=== PATIENT | female | born 1960 | race Two or more races ===

== ENCOUNTER 2025-03-05 15:14 | Inpatient (IN) | payer MEDICAID, OTHER ==
[~2025-03-05] VITALS: Ht 147.3 cm; Wt 52.8 kg
[2025-03-05 15:47] LABS: Hematocrit 39.1 % (36.0-46.0); Hemoglobin 13.7 g/dL (12.2-16.2); Mean Corpuscular Hemoglobin 31.8 pg (28.0-32.0); Mean Corpuscular Volume 90.5 fL (80.0-100.0); Nucleated Red Blood Cells % 0.2 %
[2025-03-05 15:53] LABS: Chloride 102 mmol/L (98-107); Sodium 137 mmol/L (136-145)
[2025-03-05 15:54] LABS: Anion Gap 11 (5-15); Carbon Dioxide 24 mmol/L (20-31)
[2025-03-05 15:55] LABS: Calcium 9.8 mg/dL (8.7-10.4); Potassium 3.4 mmol/L (3.5-5.1)
[2025-03-05 15:59] LABS: Glucose 101 mg/dL (74-106)
[2025-03-05 16:00] LABS: BUN/Creatinine Ratio 16.7 (10.0-20.0); Blood Urea Nitrogen 12 mg/dL (9-23)
--- NOTE | 2025-03-05 16:01 | ED.PDOC ---
HPI Comments This is a 64 year old female presenting to the ED with chief complaint of chest pain. Patient reports that she has been experiencing left sided chest pain with associated radiation to her left shoulder and SOB since yesterday. Patient relays that she has history of a CABG. Patient denies any N/V, abdominal pain, headache, dizziness, numbness, or weakness. Chief Complaint: Chest Pain Time Seen by MD: 15:59 Reviewed Notes: Nurses Notes, Medications, Allergies Allergies: Coded Allergies: NO KNOWN ALLERGIES (Unverified , 03/05/25) Information Source: Patient Mode of Arrival: Ambulatory Severity: Moderate Timing: Days Duration: Since onset Prehospital treatment: None Location: Chest (L) Radiation: Shoulder (L) Quality: Sharp Onset: At Rest PE Risk Factors: None History of: Aortic Disease Associated Signs and Symptoms: SOB Past Medical History PAST MEDICAL HISTORY: CAD, Denies Surgical History: CABG BRIGHT CUTTER History: No Pertinent BRIGHT CUTTER History Family History Family History: Reviewed,noncontributory to illness Social History Smoker: Non-Smoker Alcohol: Denies ETOH Use Drugs: Denies Drug Use Lives In: Home Constitutional: denies: chills, diaphoresis, fatigue, fever, malaise, sweats, weakness, others EENTM: denies: blurred vision, double vision, ear bleeding, ear discharge, ear drainage, ear pain, ear ringing, eye pain, eye redness, hearing loss, mouth pain, mouth swelling, nasal discharge, nose bleeding, nose congestion, nose pain, photophobia, tearing, throat pain, throat swelling, voice changes, others Respiratory: reports: shortness of breath; denies: cough, hemoptysis, or thopnea, SOB at rest, SOB with excertion, stridor, wheezing, others Cardiovascular: reports: chest pain; denies: dizzy spells, diaphoresis, Dyspnea on exertion, edema, irregular heart beat, left arm pain, lightheadedness, palpitations, PND, syncope, others Gastrointestinal: denies: abdomen distended, abdominal pain, blood streaked bowels, constipated, diarrhea, dysphagia, difficulty swallowing, hematemesis, melena, nausea, poor appetite, poor fluid intake, rectal bleeding, rectal pain, vomiting, others Genitourinary: denies: abnormal vagina bleeding, burning, dyspareunia, dysuria, flank pain, frequency, hematuria, incontinence, pain, , vagina discharge, urgency, others Neurological: denies: dizziness, fainting, headache, left sided numbness, left sided weakness, numbness, paresthesia, pre-existing deficit, right sided numbness, right sided weakness, seizure, speech problems, tingling, tremors, weakness, others Musculoskeletal: reports: others (Lt shoulder pain); denies: back pain, gout, joint pain, joint swelling, muscle pain, muscle stiffness, neck pain Integumetry: denies: bruises, change in color, change in hair/nails, dryness, laceration, lesions, lumps, rash, wounds, others Allergic/Immunocompromised: denies: Difficulty Healing, Frequent Infections, Hives, Itching, others Hematologic/Lymphatic: denies: anemia, blood clots, easy bleeding, easy bruising, swollen glands, others Endocrine: denies: excessive hunger, excessive sweating, excessive thirst, excessive urination, flushing, intolerance to cold, intolerance to heat, unexplained weight gain, unexplained weight loss, others Psychiatric: denies: anxiety, bipolar disorder, depression, hopeless, panic disorder, schizophrenia, sleepless, suicidal, others All Other Systems: Reviewed and Negative Physical Exam General Appearance: No Apparent Distress, Normal, Other (Anxious appearing) HEENT: Normal ENT Inspection, Pharynx Normal, TMs Normal Neck: Full Range of Motion, Non-Tender, Normal, Normal Inspection Respiratory: Chest Non-Tender, Lungs Clear, No Accessory Muscle Use, No Respiratory Distress, Normal Breath Sounds Cardiovascular: No Edema, No JVD, No Murmur, No Gallop, Normal Peripheral Pulses, Regular Rate/Rhythm Breast Exam: Deferred Gastrointestinal: No Organomegaly, Non Tender, No Pulsatile Mass, Normal Bowel Sounds, Soft Genitalia: Deferred Pelvic: Deferred Rectal: Deferred Extremities: No calf tenderness, Normal capillary refill, Normal inspection, Normal range of motion, Non-tender, No pedal edema Musculoskeletal : Apperance: Normal Neurologic: Alert, children's librarian II-XII nml as Tested, No Motor Deficits, Normal Affect, Normal Mood, No Sensory Deficits Cerebellar Function: Normal Reflexes: Normal Skin: Dry, Normal Color, Warm Lymphatic: No Adenopathy Was a procedure done? Was a procedure done?: No CP Differential Dx Differential Diagnosis: [place], PAC's Differential Diagnosis: CHF, HTN Essential, HTN Accelerated Differential Diagnosis: Aortic dissection, Cholelithiasis, Gastritis, Myocardial Infarction, Pericarditis X-Ray, Labs, Meds, VS Vital Signs Date Time Temp Pulse Resp B/P (MAP) Pulse Ox O2 Delivery O2 Flow Rate FiO2 03/05/25 16:27 98 Room Air* 0 21 03/05/25 16:23 81 18 98 Room Air* 0 21 03/05/25 16:12 81 03/05/25 16:00 97.6 82 18 140/73 (95) 98 97.6 03/05/25 15:28 85 03/05/25 15:24 82 03/05/25 15:18 96.2 92 18 135/75 99 96.2 Lab Test 03/05/25 16:22 03/05/25 15:22 Range/Units Troponin I High Sensitivity 31 31 </=34 ng/L White Blood Count 10.5 4.4-10.8 10^3/uL Red Blood Count 4.32 4.0-5.20 10^6/uL Hemoglobin 13.7 12.2-16.2 g/dL Hematocrit 39.1 36.0-46.0 % Mean Corpuscular Volume 90.5 80.0-100.0 fL Mean Corpuscular Hemoglobin 31.8 28.0-32.0 pg Mean Corpuscular Hemoglobin Concent 35.1 32.0-36.0 g/dL Red Cell Distribution Width 16.7 H 11.8-14.3 % Platelet Count 285 140-450 10^3/uL Mean Platelet Volume 8.3 6.9-10.8 fL Neutrophils (%) (Auto) 71.0 37.0-80.0 % Lymphocytes (%) (Auto) 18.7 10.0-50.0 % Monocytes (%) (Auto) 9.6 0.0-12.0 % Eosinophils (%) (Auto) 0.2 0.0-7.0 % Basophils (%) (Auto) 0.5 0.0-2.0 % Neutrophils # (Auto) 7.4 1.6-8.6 10 ^3/uL Lymphocytes # (Auto) 2.0 0.4-5.4 10 ^3/uL Monocytes # (Auto) 1.0 0-1.3 10 ^3/uL Eosinophils # (Auto) 0 0-0.8 10 ^3/uL Basophils # (Auto) 0 0-0.2 10 ^3/uL Nucleated Red Blood Cells 0.2 % Sodium Level 137 136-145 mmol/L Potassium Level 3.4 L 3.5-5.1 mmol/L Chloride Level 102 98-107 mmol/L Carbon Dioxide Level 24 20-31 mmol/L Anion Gap 11 5-15 Blood Urea Nitrogen 12 9-23 mg/dL Creatinine 0.72 0.550-1.02 mg/dL Glomerular Filtration Rate Calc 94 >90 mL/min BUN/Creatinine Ratio 16.7 10.0-20.0 Serum Glucose 101 74-106 mg/dL Calcium Level 9.8 8.7-10.4 mg/dL Time of 1ST Reevaluation: 16:58 Reevaluation 1ST: Unchanged Patient Education/Counseling: Diagnosis, Treatment Family Education/Counseling: No Family Present SEPSIS Sepsis Screen Date sepsis recognized/suspect: Mar 05, 2025 Time Sepsis recognized/suspect: 152 Recent Procedure: No On Antibiotic Therapy: No Respiratory Rate >20: No Heart Rate >90: Yes Temp<36 C (96.8 F) or >38.3 C: No SBP <90 or MAP <65 mmHG: No New Acute Mental Status Change: No Is the patient on CPAP, BIPAP,: No Physician Orders Electrocardigram (03/05/25 15:17) Electrocardigram (03/05/25 16:17) Electrocardigram (03/05/25 18:17) Troponin-I Hs (03/05/25 18:17) Chest Portable (03/05/25 15:35) Vital Signs Date Time Temp Pulse Resp B/P (MAP) Pulse Ox O2 Delivery O2 Flow Rate FiO2 03/05/25 16:27 98 Room Air* 0 21 03/05/25 16:23 81 18 98 Room Air* 0 21 03/05/25 16:12 81 03/05/25 16:00 97.6 82 18 140/73 (95) 98 97.6 03/05/25 15:28 85 03/05/25 15:24 82 03/05/25 15:18 96.2 92 18 135/75 99 96.2 Laboratory Tests Test 03/05/25 15:22 White Blood Count 10.5 10^3/uL (4.4-10.8) Departure 1 Departure Time of Disposition: 17:57 (Patient presented with chest pain that was concerning for possible STEMI, ACS, PE, Pneumonia, Muscle Strain, COPD, Dissection. Data: 1. I ordered and reviewed the result of at least 3 labs including a CBC, BMP, and Troponin. 2. I independently interpreted the following tests: EKG which shows a sinus arrhythmia and Chest X-ray which shows benign chest.Risk:This patient has a high risk of morbidity due to further diagnostic testing or treatment and may suffer from an acute cardiac or respiratory disorder. Workup reveals acute chest pain and patient should be admitted for further workup and possible expert consultation. ) Impression: Primary Impression: Acute chest pain Additional Impression: Shortness of breath Disposition: ADMITTED INPATIENT Admit to: Tele Condition: Guarded Critical Care Note Critical Care Time?: Yes Critical care comment: Acute chest pain Authorized and Performed by: Shaylee Humphreys MD Total critical care time: Approximately 39 minutes Due to a high probability of clinically significant, life threatening deterioration, the patient required my highest level of preparedness to intervene emergently and I personally spent this critical care time directly and personally managing the patient. This critical care time included obtaining a history; examining the patient; pulse oximetry; ordering and review of studies; arranging urgent treatment with development of a management plan; evaluation of patient's response to treatment; frequent reassessment; and, discussions with other providers. This critical care time was performed to assess and manage the high probability of imminent, life-threatening deterioration that could result in multi-organ failure. It was exclusive of separately billable procedures and treating other patients and teaching time. Please see my other sections and the rest of the note for further information on patient assessment and treatment. Stability Stability form required: No Heart Score Heart Score: Heart Score Response (Comments) Value History Highly Suspicious 2 EKG Normal 0 Age 45-64 1 Risk Factors >3 or Hx ASHD 2 Troponin 1-2 x's Normal limit 1 Total 6 I personally scribed for SHAYLEE HUMPHREYS MD ([email or web address]) on 03/05/25 at 16:01. Electronically submitted by Hernan Breaux ([email or web address]). SHAYLEE HUMPHREYS MD Mar 05, 2025 16:01
[2025-03-05 16:23] VITALS: PULSE 81; RESP 18; O2SAT 98
--- NOTE | 2025-03-05 16:38 | DVH ---
CHEST RADIOGRAPH Indication: cp Technique: Single frontal view of the chest was obtained Comparison: None FINDINGS: Lines and Tubes: None Lungs: No focal consolidation. Mild elevation of the left hemidiaphragm with left basilar linear dens ities. Pleura: No effusion. No pneumothorax. Cardiomediastinal contours: Unremarkable Bones: No acute osseous abnormality. Midline sternotomy wires are noted. IMPRESSION: Elevated left hemidiaphragm with left basilar atelectasis.
--- NOTE | 2025-03-05 19:25 | DVHHP2 ---
Admitting Diagnosis: Chest pain History of Present Illness 64 yo female with hx of CABG c/o left sided chest pain that radiates to her left shoulder with associated SOB. While in the emergency department the patient was evaluated by the provider, As per provider: Labs, vital signs, and imagining monitored. Patient will be admitted for further evaluation and treatment. I discussed admission with the patient/family and is in agreement to treatment plan. Allergies: Coded Allergies: NO KNOWN ALLERGIES (Unverified , 03/05/25) Home Meds Reported Medications Quetiapine Fumerate (Seroquel) 50 Mg Tab, 25 MG PO BID, TAB 03/06/25 Furosemide (Furosemide) 20 Mg Tab, 20 MG PO DAILY, TAB 03/06/25 Metoprolol Tartrate (Metoprolol Tartrate) 25 Mg Tab, 12.5 MG PO BID, TAB 03/06/25 Warfarin Sodium (Warfarin Sodium) 3 Mg Tab, 6 MG PO, TAB TAHE 2 TABLET BY MOUTH EVERY MON, WED, TH, FRI, AND SUN. 03/06/25 Atorvastatin Calcium (ATORVASTATIN CALCIUM) 40 Mg Tab, 40 MG PO DAILY, TAB 03/06/25 Duloxetine Hcl (Cymbalta) 60 Mg Cap, 60 MG PO DAILY, CAP 03/06/25 Warfarin Sodium (Warfarin Sodium) 4 Mg Tab, 4 MG PO DAILY, TAB TAKE 1 TABLET BY MOUTH EVERY AND SAT. 03/06/25 Levothyroxine Sodium (Levothyroxine Sodium) 88 Mcg Tab, 88 MCG PO DAILY, TAB 03/06/25 Hctz (Hydrochlorothiazide) 25 Mg Tab, 25 MG PO DAILY, TAB 03/06/25 Current Medications Current Medications Medications (Trade) Dose Ordered Sig/Toño Route PRN Reason Start Time Stop Time Status Last Admin Enoxaparin Sodium (Lovenox) 40 mg DAILY SC 03/06/25 10:00 03/06/25 14:00 DC 03/06/25 11:54 Pantoprazole Sodium (Protonix Tablet) 40 mg DAILY@0700 PO 03/06/25 07:00 03/06/25 06:00 Potassium Chloride 100 ml @ 50 mls/hr Q2H IV 03/06/25 11:45 03/06/25 15:44 DC 03/06/25 17:10 Furosemide (Lasix Tablet) 20 mg DAILY PO 03/07/25 10:00 Hydrochlorothiazide (hydroCHLOROthiazide TABLET) 25 mg DAILY PO 03/07/25 10:00 Levothyroxine Sodium (Synthroid Tablet) 88 mcg DAILY PO 03/07/25 10:00 Metoprolol Tartrate (Lopressor Tablet) 12.5 mg BID PO 03/06/25 22:00 Atorvastatin Calcium (Lipitor) 40 mg HS PO 03/06/25 22:00 Duloxetine HCl (Cymbalta Capsule) 60 mg DAILY PO 03/07/25 10:00 Quetiapine Fumarate (SEROquel TABLET) 25 mg BID PO 03/06/25 22:00 03/06/25 15:10 DC Warfarin Sodium (Coumadin Per Rx Protocol) RX PROTOCOL PER PHARMACY PO 03/06/25 14:00 Quetiapine Fumarate (SEROquel TABLET) 12.5 mg BID PO 03/06/25 22:00 Review of Systems Constitutional: denies chills, denies fever, denies malaise Eyes: denies eye pain, denies vision change ENT: denies ear pain, denies headache, denies nasal congestion, denies painful swallowing, denies voice change Cardiovascular: denies chest pain, denies edema, denies orthopnea, denies palpitations, denies paroxysmal nocturnal dyspnea Respiratory: denies cough, denies shortness of breath Gastrointestinal: denies constipation, denies diarrhea, denies nausea, denies vomiting Genitourinary: denies dysuria, denies frequent urination, denies urethral discharge Musculoskeletal: denies back pain, denies joint pain, denies muscle pain Skin: denies bruising, denies itching, denies rash Neurological: denies focal weakness, denies headache, denies sensory changes Psychiatric: denies anxiety, denies depression Endocrine: denies polydipsia, denies polyuria Hematologic/Lymphatic: denies easy bleeding, denies easy bruising, denies enlarged lymph nodes Allergic/Immunologic: denies allergy, denies hives Vital Signs Vital Signs Date Time Temp Pulse Resp B/P (MAP) Pulse Ox O2 Delivery O2 Flow Rate FiO2 03/06/25 21:00 97.8 86 16 111/65 (80) 96 97.8 03/05/25 20:55 Room Air* 0 21 Physical Exam General Appearance: alert, no distress HEENT: EOMI, PERRLA, normal external inspect of ears, no icterus, no nasal drainage Neck: no carotid bruit, no jugular venous distention (JVD), no lymphadenopathy Chest: normal thorax Respiratory: clear to auscultation, normal air movement Cardiovascular: regular rate and rhythm, no diastolic murmur, no jugular venous distention (JVD), no rub, no systolic murmur Abdominal: soft, no hepatomegaly, no mass, no splenomegaly, no tenderness Genitourinary: grossly normal external Musculoskeletal: no joint tenderness, no swelling Extremities: normal pulses, no calf tenderness, no clubbing, no cyanosis, no edema Skin: no bruising, no jaundice, no rash Neurological: alert, No focal deficit SEPSIS Sepsis Screen Date sepsis recognized/suspect: Mar 05, 2025 Time Sepsis recognized/suspect: 1625 Recent Procedure: No On Antibiotic Therapy: No Respiratory Rate >20: No Heart Rate >90: No Temp<36 C (96.8 F) or >38.3 C: No SBP <90 or MAP <65 mmHG: No New Acute Mental Status Change: No Is the patient on CPAP, BIPAP,: No Physician Orders Electrocardigram (03/05/25 15:17) Electrocardigram (03/05/25 16:17) Electrocardigram (03/05/25 18:17) Chest Portable (03/05/25 15:35) Admit (03/05/25 19:21) Code Status (03/05/25 19:21) Hydrocodone-Acet 5/325mg Tab ([place] 5/32 (03/05/25 19:30) Temazepam (Restoril) (03/05/25 19:30) Ondansetron Hcl (Zofran) (03/05/25 19:30) Docusate Sodium Capsule (Colace Capsule) (03/05/25 19:30) Cardiac Diet-2gna,Lofat,Lochol (03/06/25 Breakfast) Condition: Fair (03/05/25 19:21) Acetaminophen Tablet (Tylenol Tablet) (03/05/25 19:30) Morphine Sulfate Injection (03/05/25 19:30) Sequential Compression Device (03/05/25 ) *Consult Dr. Marcos Garcia (03/05/25 19:21) Nitroglycerin Sublingual (Ntrostat Subli (03/05/25 19:30) Morphine Sulfate Injection (03/05/25 19:30) Stat Ekg For Chest Pain (03/05/25 19:21) Notify Md Of Changes From Base (03/05/25 19:21) Heading Maker For 24 Hours (03/05/25 19:21) Emergency Dysrhythmia Protocol (03/05/25 19:21) Rhythm Strips Once Every Shift (03/05/25 19:21) Oxygen By Nasal Cannula (03/05/25 19:21) Pantoprazole Tablet (Protonix Tablet) (03/06/25 07:00) Echo 2d Mode Cardiac Dop (03/06/25 19:21) Angio Aortic Abdominal (03/06/25 12:12) Furosemide Tablet (Lasix Tablet) (03/07/25 10:00) Hydrochlorothiazide Tablet (Hydrochlorot (03/07/25 10:00) Levothyroxine Tablet (Synthroid Tablet) (03/07/25 10:00) Metoprolol Tartrate Tablet (Lopressor Ta (03/06/25 22:00) Duloxetine Hcl Capsule (Cymbalta Capsule (03/07/25 10:00) Warfarin Per Rx Protocol (Coumadin Per R (03/06/25 14:00) Atorvastatin (Lipitor) (03/06/25 22:00) Quetiapine Fumarate Tablet (Seroquel Tab (03/06/25 22:00) Coumadin Per Pharmacy Protcol (03/06/25 17:00) PTPTT (03/07/25 05:00) Complete Blood Count (03/07/25 05:00) Potassium Effervesent Tab (Klor-Con/Ef) (03/06/25 22:00) Ct Angio Chest Contrast (03/06/25 19:42) Vital Signs Date Time Temp Pulse Resp B/P (MAP) Pulse Ox O2 Delivery O2 Flow Rate FiO2 03/06/25 21:00 97.8 86 16 111/65 (80) 96 97.8 03/06/25 17:22 98.6 83 18 139/65 (89) 96 98.6 03/06/25 13:03 97.6 70 16 129/63 (85) 100 97.6 03/06/25 09:39 98.1 96 18 153/75 (101) 99 98.1 03/06/25 04:00 90 03/06/25 00:00 90 03/05/25 22:00 98.3 83 18 134/84 (101) 98 98.3 03/05/25 20:55 72 16 98 Room Air* 0 21 03/05/25 20:00 98.4 90 16 124/65 (84) 98 98.4 03/05/25 20:00 89 03/05/25 18:15 87 03/05/25 18:00 85 18 152/78 (102) 98 03/05/25 16:27 98 Room Air* 0 21 03/05/25 16:23 81 18 98 Room Air* 0 21 03/05/25 16:12 81 03/05/25 16:00 97.6 82 18 140/73 (95) 98 97.6 03/05/25 15:28 85 03/05/25 15:24 82 03/05/25 15:18 96.2 92 18 135/75 99 96.2 Laboratory Tests Test 03/05/25 15:22 03/06/25 03:56 White Blood Count 10.5 10^3/uL (4.4-10.8) 6.4 10^3/uL (4.4-10.8) # Medications Medications Dose Ordered Sig/Toño Route Start Time Stop Time Status Last Admin Dose Admin Enoxaparin Sodium 40 mg DAILY SC 03/06/25 10:00 03/06/25 14:00 DC 03/06/25 11:54 Potassium Bicarbonate 50 meq ONCE ONCE PO 03/06/25 17:45 03/06/25 17:48 DC 03/06/25 18:07 Potassium Chloride 100 ml @ 50 mls/hr Q2H IV 03/06/25 11:45 03/06/25 15:44 DC 03/06/25 17:10 Warfarin Sodium 4 mg ONCE@17 ONCE PO 03/06/25 17:00 03/06/25 17:01 DC 03/06/25 17:08 Results Labs Test 03/06/25 14:59 03/06/25 03:56 03/05/25 18:23 03/05/25 15:22 Range/Units Prothrombin Time 24.1 H 9.3-11.8 sec Prothrombin Time INR 2.49 H 0.9-1.15 Activated Partial Thromboplast Time 49.7 H 24.5-34.5 SEC White Blood Count 6.4 # 4.4-10.8 10^3/uL Red Blood Count 4.09 4.0-5.20 10^6/uL Hemoglobin 12.9 12.2-16.2 g/dL Hematocrit 37.6 36.0-46.0 % Mean Corpuscular Volume 91.9 80.0-100.0 fL Mean Corpuscular Hemoglobin 31.4 28.0-32.0 pg Mean Corpuscular Hemoglobin Concent 34.2 32.0-36.0 g/dL Red Cell Distribution Width 16.2 H 11.8-14.3 % Platelet Count 242 140-450 10^3/uL Mean Platelet Volume 8.1 6.9-10.8 fL Neutrophils (%) (Auto) 59.2 37.0-80.0 % Lymphocytes (%) (Auto) 29.4 10.0-50.0 % Monocytes (%) (Auto) 10.5 0.0-12.0 % Eosinophils (%) (Auto) 0.6 0.0-7.0 % Basophils (%) (Auto) 0.3 0.0-2.0 % Neutrophils # (Auto) 3.8 1.6-8.6 10 ^3/uL Lymphocytes # (Auto) 1.9 0.4-5.4 10 ^3/uL Monocytes # (Auto) 0.7 0-1.3 10 ^3/uL Eosinophils # (Auto) 0 0-0.8 10 ^3/uL Basophils # (Auto) 0 0-0.2 10 ^3/uL Nucleated Red Blood Cells 0.2 % Sodium Level 139 136-145 mmol/L Potassium Level 2.9 L 3.5-5.1 mmol/L Chloride Level 102 98-107 mmol/L Carbon Dioxide Level 25 20-31 mmol/L Anion Gap 12 5-15 Blood Urea Nitrogen 9 9-23 mg/dL Creatinine 0.64 0.550-1.02 mg/dL Glomerular Filtration Rate Calc 99 >90 mL/min BUN/Creatinine Ratio 14.1 10.0-20.0 Serum Glucose 108 H 74-106 mg/dL Calcium Level 9.4 8.7-10.4 mg/dL Total Bilirubin 1.8 H 0.2-1.0 mg/dL Aspartate Amino Transferase (AST) 17 13-40 U/L Alanine Aminotransferase (ALT) 24 7-40 U/L Alkaline Phosphatase 82 46-116 U/L Total Protein 7.1 5.7-8.2 g/dL Albumin 4.3 3.2-4.8 g/dL Troponin I High Sensitivity 29 </=34 ng/L D-Dimer, Quantitative < 0.19 0.0-0.49 mg/L FEU Plan 1. Unstable angina Monitor EKG, trend troponin 2. CAD Monitor EKG, obtain CT chest 3. HLD Monitor, PPI 4. Chronic anticoagulation Monitor, continue home meds, Coumadin per pharmacy 5. Hx of CABG Monitor 6. Hypothyroid Monitor, obtain TSH level 7. Hx acute valve replacement Monitor EKG 8. Hx aortic aneurysm Monitor EKG Plan discussed with: Patient, Other LOAN HERNANDEZ NP Mar 05, 2025 19:25
[2025-03-05] MEDS ORDERED: NITROGLYCERIN 0.4 MG SL TAB SL PRN (19:30)
[2025-03-05] MEDS ORDERED: MORPHINE SULFATE INJ 2 MG/ml SYRG IV PRN ×2 (19:30)
[2025-03-05] MEDS ORDERED: DOCUSATE SOD 100 MG CAP PO PRN (19:30)
[2025-03-05] MEDS ORDERED: ACETAMINOPHEN 325 MG TAB PO PRN (19:30)
[2025-03-05] MEDS ORDERED: TEMAZEPAM 15 MG CAP PO PRN (19:30)
[2025-03-05 20:55] VITALS: PULSE 72; RESP 16; O2SAT 98
[2025-03-05 22:00] VITALS: BP 134/84; PULSE 83; RESP 18; TEMP 98.3; O2SAT 98
[2025-03-06] VITALS (7 sets, daily range): BP systolic 111–153; BP diastolic 63–75; PULSE 70–96; RESP 16–18; TEMP 97.6–98.6; O2SAT 96–100
[2025-03-06] MEDS ORDERED: HYDR25TA5 PO (03:10)
[2025-03-06] MEDS ORDERED: WARF-112 PO (03:18)
[2025-03-06] MEDS ORDERED: WARF-111 PO (03:18)
[2025-03-06] MEDS ORDERED: METO25TA5 PO (03:18)
[2025-03-06] MEDS ORDERED: QUET50TA PO (03:18)
[2025-03-06] MEDS ORDERED: FURO20TA3 PO (03:18)
[2025-03-06] MEDS ORDERED: DULO60CA41 PO (03:18)
[2025-03-06] MEDS ORDERED: LEVO88TA4 PO (03:18)
[2025-03-06] MEDS ORDERED: ATOR40TA52 PO (03:18)
[2025-03-06] MEDS: HYDROcodone-ACET 5/325MG TAB PO PRN (03:32)
[2025-03-06 04:42] LABS: Hematocrit 37.6 % (36.0-46.0); Hemoglobin 12.9 g/dL (12.2-16.2); Mean Corpuscular Hemoglobin 31.4 pg (28.0-32.0); Mean Corpuscular Volume 91.9 fL (80.0-100.0); Nucleated Red Blood Cells % 0.2 %
[2025-03-06 04:54] LABS: Alanine Aminotransferase 24 U/L (7-40); Albumin 4.3 g/dL (3.2-4.8); Alkaline Phosphatase 82 U/L (46-116); Anion Gap 12 (5-15); BUN/Creatinine Ratio 14.1 (10.0-20.0); Blood Urea Nitrogen 9 mg/dL (9-23); Calcium 9.4 mg/dL (8.7-10.4); Carbon Dioxide 25 mmol/L (20-31); Chloride 102 mmol/L (98-107); Sodium 139 mmol/L (136-145); Total Protein 7.1 g/dL (5.7-8.2)
[2025-03-06 04:55] LABS: Bilirubin, Total 1.8 mg/dL (0.2-1.0); Glucose 108 mg/dL (74-106); Potassium 2.9 mmol/L (3.5-5.1)
[2025-03-06] MEDS: PANTOPRAZOLE 40 MG TAB PO SCH (06:00)
--- NOTE | 2025-03-06 10:33 | DVHINCON2 ---
Date of service: Mar 06, 2025 History of Present Illness HPI Patient is a 64-year-old female who presented with chest discomfort. It was not exertional. She did vomit and felt better after that. Did have some bowel movement also. Cardiology is involved for cardiac aspects of care. Serial high sensitive troponin has been negative. EKG has been nonrevealing. Patient is known to our practice from outside and before. Patient did have bypass surgery /aortic valve replacement earlier this year. She also has history of aortic aneurysm. Home Meds Reported Medications Quetiapine Fumerate (Seroquel) 50 Mg Tab, 25 MG PO BID, TAB 03/06/25 Furosemide (Furosemide) 20 Mg Tab, 20 MG PO DAILY, TAB 03/06/25 Metoprolol Tartrate (Metoprolol Tartrate) 25 Mg Tab, 12.5 MG PO BID, TAB 03/06/25 Warfarin Sodium (Warfarin Sodium) 3 Mg Tab, 6 MG PO, TAB TAHE 2 TABLET BY MOUTH EVERY MON, WED, , SUN, AND SUN. 03/06/25 Atorvastatin Calcium (ATORVASTATIN CALCIUM) 40 Mg Tab, 40 MG PO DAILY, TAB 03/06/25 Duloxetine Hcl (Cymbalta) 60 Mg Cap, 60 MG PO DAILY, CAP 03/06/25 Warfarin Sodium (Warfarin Sodium) 4 Mg Tab, 4 MG PO DAILY, TAB TAKE 1 TABLET BY MOUTH EVERY AND SAT. 03/06/25 Levothyroxine Sodium (Levothyroxine Sodium) 88 Mcg Tab, 88 MCG PO DAILY, TAB 03/06/25 Hctz (Hydrochlorothiazide) 25 Mg Tab, 25 MG PO DAILY, TAB 03/06/25 Past Medical History Others Past medical history includes coronary artery disease/valvular heart disease (history of aortic insufficiency), status post CABG/aortic valve replacement (SVG to RCA and aortic valve replacement), depression, hypothyroidism, hypertension and hyperlipidemia. Smoker: No Hx (Negative) Drugs: None Lives with: With family Review of Systems Constitutional: No symptom reported Ears, Nose, & Throat: No symptom reported Cardiovascular: Chest Pain Gastrointestinal: Nausea, Vomiting, Abdominal Pain All Other Systems Fourteen point review of system was performed. Relevant findings as per above and as per HPI. Otherwise negative. H&P Exam Vital Signs Vital Signs Date Time Temp Pulse Resp B/P (MAP) Pulse Ox O2 Delivery O2 Flow Rate FiO2 03/06/25 09:39 98.1 96 18 153/75 (101) 99 98.1 03/05/25 20:55 Room Air* 0 21 General Appeara: Well developed Head Exam: Normal inspection Neck Exam: Normal inspection Eye Exam: bilateral eye PERRL Nasal Exam: Normal inspection Mouth: Normal Inspection Pulmonary/Respiratory: Lungs clear Cardiovascular/Chest: Regular rate, Diastolic murmur, Systolic murmur Peripheral Pulses: 2+ carotid (R), 2+ carotid (L), 2+ femoral (R), 2+ femoral (L), 2+ dorsalis pedis (R), 2+ dorsalis pedis (L), 2+ Radial (R), 2+ Radial (L) Abdominal Exam: Normal bowel sounds, Soft Neuro/Mental St: Alert, Oriented Appearance: Appropriate appearance Eye contact/ Speech: Cooperative Labs/Xrays Labs Test 03/06/25 03:56 03/05/25 18:23 03/05/25 15:22 Range/Units White Blood Count 6.4 # 4.4-10.8 10^3/uL Red Blood Count 4.09 4.0-5.20 10^6/uL Hemoglobin 12.9 12.2-16.2 g/dL Hematocrit 37.6 36.0-46.0 % Mean Corpuscular Volume 91.9 80.0-100.0 fL Mean Corpuscular Hemoglobin 31.4 28.0-32.0 pg Mean Corpuscular Hemoglobin Concent 34.2 32.0-36.0 g/dL Red Cell Distribution Width 16.2 H 11.8-14.3 % Platelet Count 242 140-450 10^3/uL Mean Platelet Volume 8.1 6.9-10.8 fL Neutrophils (%) (Auto) 59.2 37.0-80.0 % Lymphocytes (%) (Auto) 29.4 10.0-50.0 % Monocytes (%) (Auto) 10.5 0.0-12.0 % Eosinophils (%) (Auto) 0.6 0.0-7.0 % Basophils (%) (Auto) 0.3 0.0-2.0 % Neutrophils # (Auto) 3.8 1.6-8.6 10 ^3/uL Lymphocytes # (Auto) 1.9 0.4-5.4 10 ^3/uL Monocytes # (Auto) 0.7 0-1.3 10 ^3/uL Eosinophils # (Auto) 0 0-0.8 10 ^3/uL Basophils # (Auto) 0 0-0.2 10 ^3/uL Nucleated Red Blood Cells 0.2 % Sodium Level 139 136-145 mmol/L Potassium Level 2.9 L 3.5-5.1 mmol/L Chloride Level 102 98-107 mmol/L Carbon Dioxide Level 25 20-31 mmol/L Anion Gap 12 5-15 Blood Urea Nitrogen 9 9-23 mg/dL Creatinine 0.64 0.550-1.02 mg/dL Glomerular Filtration Rate Calc 99 >90 mL/min BUN/Creatinine Ratio 14.1 10.0-20.0 Serum Glucose 108 H 74-106 mg/dL Calcium Level 9.4 8.7-10.4 mg/dL Total Bilirubin 1.8 H 0.2-1.0 mg/dL Aspartate Amino Transferase (AST) 17 13-40 U/L Alanine Aminotransferase (ALT) 24 7-40 U/L Alkaline Phosphatase 82 46-116 U/L Total Protein 7.1 5.7-8.2 g/dL Albumin 4.3 3.2-4.8 g/dL Troponin I High Sensitivity 29 </=34 ng/L D-Dimer, Quantitative < 0.19 0.0-0.49 mg/L FEU Assessment/Plan Plan Patient is a 64-year-old female who presented with chest discomfort. It was not exertional. She did vomit and felt better after that. Did have some bowel movement also. Cardiology is involved for cardiac aspects of care. Serial high sensitive troponin has been negative. EKG has been nonrevealing. Patient is known to our practice from outside and before. Patient did have bypass surgery/aortic valve replacement earlier this year. She also has history of aortic aneurysm. Not in acute distress. Sitting in bed. No JVD. Mucosa is pink and wet. Not using accessory muscles of breathing. Lungs are clear to auscultation. Cardiac: Regular, no thrill/gallop. Abdomen is soft. Bowel sound is positive. There is no gross mass/hepatomegaly. Extremities do not reveal edema. Dorsalis pedis 2+ bilateral. There is no gross lateralized neurologic deficit. Past medical history includes coronary artery disease/valvular heart disease (history of aortic insufficiency), status post CABG/aortic valve replacement (SVG to RCA and aortic valve replacement), depression, hypothyroidism, hypertension and hyperlipidemia. Left heart catheterization of September 24, 2024 revealed one-vessel coronary artery disease (RCA with 80% lesion) Echocardiogram of October 31, 2024 revealed mild concentric left ventricular hypertrophy, ejection fraction of 60-65%, mild right ventricular enlargement, moderate left atrial enlargement, mild right atrial enlargement, prosthetic valve had aortic position with [id number] aortic insufficiency, no stenosis, [id number] mitral regurgitation, mild tricuspid regurgitation, ascending aorta up to 4.6 cm. There was no pulmonary hypertension Creatinine: 0.72 - 0.64 Potassium: 3.4 - 2.9 Hemoglobin: 13.7 - 12.9 D-dimer: <0.19 Troponin (high sensitive): 31 - 31 - 29 Chest x-ray revealed: IMPRESSION: Elevated left hemidiaphragm with left basilar atelectasis. EKG reveals sinus rhythm with no ST-T changes Patient is a 64-year-old female who presented with atypical chest discomfort. Serial high sensitive troponin has been negative. Acute coronary syndrome is not considered at this point. It is of note that the patient does have history of aortic aneurysm. Did have aortic valve replacement earlier this year also. Chest pain History of coronary artery disease, status post CABG Valvular heart disease, status post aortic valve replacement History of aortic aneurysm Cardiac suggestion for management: Managed on telemetry Follow-up electrolytes and kidney function tests and correct abnormalities Request for echocardiogram Request for CT angiography of aorta Continue aspirin Further evaluation and management depends on the above and clinical course Thank you for consultation A total of 75 minutes was spent reviewing the patient record, examining the patient, making a diagnostic and therapeutic plan, discussing this plan with medical personnel, following up on diagnostic studies and following the patient for clinical stability excluding any and all procedures. At least 50% of this time was spent in direct, [id number] contact. Thank you for allowing me to participate in this patient's care. Further recommendations will depend on patient's clinical course. Please do not hesitate to contact me if you have any questions or concerns. This medical document was created using electronic medical record system with [employer] dictation system. Although this document has been carefully reviewed, there may still be some phonetic and typographical errors. These areas are purely typographical due to the imperfection of the software programs, and do not reflect any compromise in the patient's medical care. Plan discussed with: Patient, Other (nurse) ANTHONY MERCADO MD Mar 06, 2025 10:33
[2025-03-06] MEDS: ENOXAPARIN SOD 40 MG/0.4 ML SYRINGE SC SCH (11:54)
[2025-03-06] MEDS: POTASSIUM CHL 20MEQ/100ML 100 ML IV SCH (13:45)
[2025-03-06] MEDS: ONDANSETRON HCL 4 MG/2 ML VIAL IV PRN (14:07)
[2025-03-06] MEDS: IOHEXOL 350 MG/ML 100ML IJ ONE ×2 (14:13→19:21)
--- NOTE | 2025-03-06 15:19 | DVH ---
Exam: CT ANGIO AORTIC ABDOMINAL History: POSSIBLE DISSECTION/ANEURSYM Comparison Study: None Contrast: Type of contrast: Omnipaque 350 Contrast injected: 85 mL Contrast wasted: 0 TECHNIQUE: A digital technology coordinator image was obtained. During the uneventful, intravenous administration of c ontrast material, multislice data acquisition was obtained through the abdomen and pelvis. The data s et was subsequently reconstructed into axial images. Images were reviewed on a work station using a c ombination of axial and multiplanar using a variety of window levels and settings. Radiation Dose Information: CT Dose: CTDI volume is 29.41 mGy. Dose-length product is 270.24 mGy*cm FINDINGS: Lung Bases: No acute or significant lung base finding. Normal heart size. No pleural or pericardial effusion. Liver: The liver is normal in size. No focal lesions. Normal hepatic vascular enhancement. Hepatic s teatosis. Gallbladder and Biliary Tree: Unremarkable Spleen: Unremarkable Pancreas: The pancreas is normal in appearance without focal lesions or abnormal enhancement. Adrenal Glands: Unremarkable Kidneys: Kidneys demonstrate normal symmetric enhancement without focal lesions, calculi or hydroneph rosis. Bladder: Unremarkable Bowel: The stomach is grossly normal in appearance. Small bowel and colon are normal in caliber and d istribution. The appendix is not visualized; however, no secondary findings of acute appendicitis gina ntified. Ascites: Absent Lymphadenopathy: No mesenteric, retroperitoneal or periportal lymphadenopathy. Abdominal Wall and Mesentery: Unremarkable. Vasculature: The visualized abdominal aorta is normal in size and caliber. Abdominal and pelvic vess els demonstrate normal enhancement. Abdominal aorta of the diaphragm measures 2.5 cm. No dissection. Terminal aorta below the renal arteries 17 mm no dissection. Abdominal aorta measures 16 mm above th e aortic bifurcation with mural thrombus. Abdominal aorta above the aortic bifurcation measures 13 mm calcifications in the wall. No findings to suggest aortic dissection. Right iliac artery measures 7 .5 mm with calcification wall no findings of dissection. Left iliac artery measures 7 0.3 mm no aorti c dissection calcifications in the wall. Pelvic Organs: Unremarkable Musculoskeletal: No aggressive focal bony lesions, acute fractures or dislocation. 3 mm anterior spon dylolisthesis L4-5. Mild superior endplate compression of T12 without displacement. Soft tissues: Unremarkable. IMPRESSION: 1. No findings of aortic aneurysm or aortic dissection. 2. Infrarenal abdominal aorta measurement 17 mm 3. At the level of L 3 4 in the wall of the aorta on the left measures proximally 12 13 mm long and 6-7 mm thick. This may represent mural thrombus old dissection. This does not appear to be an acute dissection there is no vascular wall with contrast on both sides to suggest an acute dissection. 4. Maximal aortic measurement 2.5 cm noted at the diaphragm. No findings of dissection at this level. . 5. Mild superior endplate compression of T12 without displacement. 6. 2-3 mm anterior spondylolisthesis L4-5 7. Hepatic steatosis. 8. All CT scans at this medical facility are performed using dose modulation techniques as appropriat e to a performed exam including the following: Automated exposure control was utilized; adjustment of the MA and/or KV according to patient size; and use of iterative reconstruction technique. Abdominal aorta Critical Result: Explanation of abdominal aortic findings Findings discussed with Camilo ORTIZ at 03/06/2025 03:15 PM, and acknowledged receipt and understanding of the findings. ..
[2025-03-06 15:27] LABS: INR 2.49 (0.9-1.15); Partial Thromboplastin Time 49.7 SEC (24.5-34.5); Prothrombin Time 24.1 sec (9.3-11.8)
[2025-03-06] MEDS: WARFARIN SODIUM 2 MG TAB PO ONE (17:08)
[2025-03-06] MEDS: POTASSIUM EFFERVESENT TAB 25 MEQ PO ONE ×2 (18:07→22:52)
--- NOTE | 2025-03-06 20:50 | DVH ---
CLINICAL HISTORY: RULE OUT DISSECTION/ANEURYSM OF THE ASCENDING AORTA TECHNIQUE: CT angiogram of the chest was performed with intravenous contrast . 3D MIP reconstructed images were created and archived on the PACS system. This exam was performed according to our [facility] ental dose optimization program. Up-to-date CT equipment and radiation dose reduction techniques are utilized as appropriate. WID: COMPARISON: None FINDINGS: Lungs: Subsegmental atelectasis within the left lower lobe and lingula.. . Tracheobronchial tree: Mil d bronchial wall thickening diffusely. Cardiac: Status post aortic valve replacement period there is trace pericardial thickening. Right atr ial chamber is dilated measuring 5.3 cm. Vascular: No pulmonary emboli. Ectatic ascending aorta measuring 3.7 cm. Coronary artery calcium. Lymph nodes: unremarkable Thoracic inlet: unremarkable Bones: Mild degenerative changes within the spine. Status post median sternotomy. Nonunited sternotom y. Upper Abdomen: Small hiatal hernia IMPRESSION: 1. No pulmonary emboli 2. Ectasia of the ascending aorta measuring up to 3.7 cm. No acute vascular abnormality. 3. Status aortic valve replacement 4. Subsegmental atelectasis within the left lower lobe with elevation of the left hemidiaphragm 5. Bronchial wall thickening, nonspecific, but can be seen with chronic large areas disease 6. Coronary artery calcium
--- NOTE | 2025-03-06 21:58 | DVHPN2 ---
Progress Note - Dictate Date Seen: Mar 06, 2025 Medical Necessity Reason Pt with a Central, PICC or Fol: No vital signs Vital Sign Date Time Temp Pulse Resp B/P (MAP) Pulse Ox O2 Delivery O2 Flow Rate FiO2 03/06/25 21:00 97.8 86 16 111/65 (80) 96 97.8 03/05/25 20:55 Room Air* 0 21 medications Current Medications Medications Dose Ordered Sig/Toño Route Start Time Stop Time Status Last Admin Dose Admin Acetaminophen/ Hydrocodone Bitart 1 tab Q4HP PRN PO 03/05/25 19:30 03/06/25 17:07 Temazepam 15 mg QHSP PRN PO 03/05/25 19:30 Ondansetron HCl 4 mg Q4HP PRN IV 03/05/25 19:30 03/06/25 14:07 Docusate Sodium 100 mg BIDPRN PRN PO 03/05/25 19:30 Acetaminophen 650 mg Q6HP PRN PO 03/05/25 19:30 Morphine Sulfate 2 mg Q4HPRN PRN IV 03/05/25 19:30 Nitroglycerin 0.4 mg Q5MINP PRN SL 03/05/25 19:30 Morphine Sulfate 2 mg Q30M PRN IV 03/05/25 19:30 Pantoprazole Sodium 40 mg DAILY@0700 PO 03/06/25 07:00 03/06/25 06:00 Furosemide 20 mg DAILY PO 03/07/25 10:00 Hydrochlorothiazide 25 mg DAILY PO 03/07/25 10:00 Levothyroxine Sodium 88 mcg DAILY PO 03/07/25 10:00 Metoprolol Tartrate 12.5 mg BID PO 03/06/25 22:00 Atorvastatin Calcium 40 mg HS PO 03/06/25 22:00 Duloxetine HCl 60 mg DAILY PO 03/07/25 10:00 Warfarin Sodium RX PROTOCOL PER PHARMACY PO 03/06/25 14:00 Quetiapine Fumarate 12.5 mg BID PO 03/06/25 22:00 laboratory and microbiology Laboratory Tests 03/06/25 03:56 Test 03/06/25 03:56 Range/Units Serum Glucose 108 H 74-106 mg/dL Problem List 1. Unstable angina Monitor EKG, trend troponin 2. CAD Monitor EKG, obtain CT chest 3. HLD Monitor, PPI 4. Chronic anticoagulation Monitor, continue home meds, Coumadin per pharmacy 5. Hx of CABG Monitor 6. Hypothyroid Monitor, obtain TSH level 7. Hx acute valve replacement Monitor EKG 8. Hx aortic aneurysm Monitor EKG Assessment/Plan Subjective: Patient is awake and alert. Objective: Patient was admitted for chest pain, most likely noncardiac in nature. CT angio is currently pending. Patient was seen by cardiology. He has a history of aortic valve replacement and aortic aneurysm. Plan: Consult pharmacy for Coumadin therapy. Monitor EKG. Continue home medications. Discharge planning once cleared by cardiology. Plan discussed with: Patient, Other LOAN HERNANDEZ NP Mar 06, 2025 21:58
[2025-03-06] MEDS: ATORVASTATIN 20 MG TAB PO SCH (22:52)
[2025-03-06] MEDS: METOPROLOL TARTRATE 25 MG TAB PO SCH (22:53)
[2025-03-06] MEDS ORDERED: ASPI325T6 PO (23:34)
[2025-03-07] VITALS (8 sets, daily range): BP systolic 106–113; BP diastolic 46–71; PULSE 64–81; RESP 17–18; TEMP 97.4–98.2; O2SAT 93–98
--- NOTE | 2025-03-07 07:17 | DVHPN2 ---
Progress Note - Dictate Date Seen: Mar 07, 2025 Medical Necessity Reason Pt with a Central, PICC or Fol: No vital signs Vital Sign Date Time Temp Pulse Resp B/P (MAP) Pulse Ox O2 Delivery O2 Flow Rate FiO2 03/07/25 05:00 97.6 64 18 109/69 (82) 94 97.6 03/06/25 23:09 Room Air* 0 21 Total Intake and Output 03/06/25 03/06/25 03/07/25 15:00 23:00 07:00 Intake Total 720 ml Balance 720 ml medications Current Medications Medications Dose Ordered Sig/Toño Route Start Time Stop Time Status Last Admin Dose Admin Acetaminophen/ Hydrocodone Bitart 1 tab Q4HP PRN PO 03/05/25 19:30 03/06/25 23:03 1 TAB Temazepam 15 mg QHSP PRN PO 03/05/25 19:30 Ondansetron HCl 4 mg Q4HP PRN IV 03/05/25 19:30 03/06/25 14:07 4 MG Docusate Sodium 100 mg BIDPRN PRN PO 03/05/25 19:30 Acetaminophen 650 mg Q6HP PRN PO 03/05/25 19:30 Morphine Sulfate 2 mg Q4HPRN PRN IV 03/05/25 19:30 Nitroglycerin 0.4 mg Q5MINP PRN SL 03/05/25 19:30 Morphine Sulfate 2 mg Q30M PRN IV 03/05/25 19:30 Pantoprazole Sodium 40 mg DAILY@0700 PO 03/06/25 07:00 03/07/25 05:51 40 MG Furosemide 20 mg DAILY PO 03/07/25 10:00 Hydrochlorothiazide 25 mg DAILY PO 03/07/25 10:00 Levothyroxine Sodium 88 mcg DAILY PO 03/07/25 10:00 Metoprolol Tartrate 12.5 mg BID PO 03/06/25 22:00 03/06/25 22:53 12.5 MG Atorvastatin Calcium 40 mg HS PO 03/06/25 22:00 03/06/25 22:52 40 MG Duloxetine HCl 60 mg DAILY PO 03/07/25 10:00 Warfarin Sodium RX PROTOCOL PER PHARMACY PO 03/06/25 14:00 Quetiapine Fumarate 12.5 mg BID PO 03/06/25 22:00 03/06/25 22:53 12.5 MG laboratory and microbiology Laboratory Tests 03/06/25 03:56 Test 03/06/25 03:56 Range/Units Serum Glucose 108 H 74-106 mg/dL Problem List 1. Unstable angina Monitor EKG, trend troponin 2. CAD Monitor EKG, obtain CT chest 3. HLD Monitor, PPI 4. Chronic anticoagulation Monitor, continue home meds, Coumadin per pharmacy 5. Hx of CABG Monitor 6. Hypothyroid Monitor, obtain TSH level 7. Hx acute valve replacement Monitor EKG 8. Hx aortic aneurysm Monitor EKG Assessment/Plan Subjective: Patient is awake and alert. Objective: Patient was seen by cardiology. Patient states she had a history of an aneurysm. Echocardiogram is pending. Patient had a CT angiogram done and vascular surgeon was consulted however he states he is not available until Sunday. Patient denies any chest pain. EKG is stable. Plan: Continue current treatment. Awaiting for vascular surgery evaluation for possible mural thrombus versus old dissection. Plan discussed with: Patient, Other LOAN HERNANDEZ NP Mar 07, 2025 07:17
--- NOTE | 2025-03-07 08:10 | DVHPN2 ---
Progress Note - Dictate Date Seen: Mar 07, 2025 Medical Necessity Reason Pt with a Central, PICC or Fol: No vital signs Vital Sign Date Time Temp Pulse Resp B/P (MAP) Pulse Ox O2 Delivery O2 Flow Rate FiO2 03/07/25 05:00 97.6 64 18 109/69 (82) 94 97.6 03/06/25 23:09 Room Air* 0 21 Total Intake and Output 03/06/25 03/06/25 03/07/25 15:00 23:00 07:00 Intake Total 720 ml Balance 720 ml medications Current Medications Medications Dose Ordered Sig/Toño Route Start Time Stop Time Status Last Admin Dose Admin Acetaminophen/ Hydrocodone Bitart 1 tab Q4HP PRN PO 03/05/25 19:30 03/06/25 23:03 1 TAB Temazepam 15 mg QHSP PRN PO 03/05/25 19:30 Ondansetron HCl 4 mg Q4HP PRN IV 03/05/25 19:30 03/06/25 14:07 4 MG Docusate Sodium 100 mg BIDPRN PRN PO 03/05/25 19:30 Acetaminophen 650 mg Q6HP PRN PO 03/05/25 19:30 Morphine Sulfate 2 mg Q4HPRN PRN IV 03/05/25 19:30 Nitroglycerin 0.4 mg Q5MINP PRN SL 03/05/25 19:30 Morphine Sulfate 2 mg Q30M PRN IV 03/05/25 19:30 Pantoprazole Sodium 40 mg DAILY@0700 PO 03/06/25 07:00 03/07/25 05:51 40 MG Furosemide 20 mg DAILY PO 03/07/25 10:00 Hydrochlorothiazide 25 mg DAILY PO 03/07/25 10:00 Levothyroxine Sodium 88 mcg DAILY PO 03/07/25 10:00 Metoprolol Tartrate 12.5 mg BID PO 03/06/25 22:00 03/06/25 22:53 12.5 MG Atorvastatin Calcium 40 mg HS PO 03/06/25 22:00 03/06/25 22:52 40 MG Duloxetine HCl 60 mg DAILY PO 03/07/25 10:00 Warfarin Sodium RX PROTOCOL PER PHARMACY PO 03/06/25 14:00 Quetiapine Fumarate 12.5 mg BID PO 03/06/25 22:00 03/06/25 22:53 12.5 MG laboratory and microbiology Test 03/07/25 06:28 Range/Units Serum Glucose Pending Assessment/Plan Patient is a 64-year-old female who presented with chest discomfort. It was not exertional. She did vomit and felt better after that. Did have some bowel movement also. Cardiology is involved for cardiac aspects of care. Serial high sensitive troponin has been negative. EKG has been nonrevealing. Patient is known to our practice from outside and before. Patient did have bypass surgery/aortic valve replacement earlier this year. She also has history of aortic aneurysm. Not in acute distress. Sitting in bed. No JVD. Mucosa is pink and wet. Not using accessory muscles of breathing. Lungs are clear to auscultation. Cardiac: Regular, no thrill/gallop. Abdomen is soft. Bowel sound is positive. There is no gross mass/hepatomegaly. Extremities do not reveal edema. Dorsalis pedis 2+ bilateral. There is no gross lateralized neurologic deficit. Past medical history includes coronary artery disease/valvular heart disease (history of aortic insufficiency), status post CABG/aortic valve replacement (SVG to RCA and aortic valve replacement), depression, hypothyroidism, hypertension and hyperlipidemia. Left heart catheterization of September 24, 2024 revealed one-vessel coronary artery disease (RCA with 80% lesion) Echocardiogram of October 31, 2024 revealed mild concentric left ventricular hypertrophy, ejection fraction of 60-65%, mild right ventricular enlargement, moderate left atrial enlargement, mild right atrial enlargement, prosthetic valve had aortic position with [id number] aortic insufficiency, no stenosis, vozp-xj-nilvosly mitral regurgitation, mild tricuspid regurgitation, ascending aorta up to 4.6 cm. There was no pulmonary hypertension Creatinine: 0.72 - 0.64 - 0.71 Potassium: 3.4 - 2.9 - 4.2 Hemoglobin: 13.7 - 12.9 - 12.3 D-dimer: <0.19 Troponin (high sensitive): 31 - 31 - 29 Chest x-ray revealed: IMPRESSION: Elevated left hemidiaphragm with left basilar atelectasis. Abdominal Angiography revealed: IMPRESSION: 1. No findings of aortic aneurysm or aortic dissection. 2. Infrarenal abdominal aorta measurement 17 mm 3. At the level of L 3 4 in the wall of the aorta on the left measures proximally 12 13 mm long and 6-7 mm thick. This may represent mural thrombus old dissection. This does not appear to be an acute dissection there is no vascular wall with contrast on both sides to suggest an acute dissection. 4. Maximal aortic measurement 2.5 cm noted at the diaphragm. No findings of dissection at this level.. 5. Mild superior endplate compression of T12 without displacement. 6. 2- 3 mm anterior spondylolisthesis L4-5 7. Hepatic steatosis. 8. All CT scans at this medical facility are performed using dose modulation techniques as appropriate to a performed exam including the following: Automated exposure control was utilized; adjustment of the MA and/or KV according to patient size; and use of iterative reconstruction technique. CT Angiography of chest revealed: IMPRESSION: 1. No pulmonary emboli 2. Ectasia of the ascending aorta measuring up to 3.7 cm. No acute vascular abnormality. 3. Status aortic valve replacement 4. Subsegmental atelectasis within the left lower lobe with elevation of the left hemidiaphragm 5. Bronchial wall thickening, nonspecific, but can be seen with chronic large areas disease 6. Coronary artery calcium EKG reveals sinus rhythm with no ST-T changes Patient is a 64-year-old female who presented with atypical chest discomfort. S erial high sensitive troponin has been negative. Acute coronary syndrome is not considered at this point. It is of note that the patient does have history of aortic aneurysm. Did have aortic valve replacement earlier this year also. 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 At least 50% of this time was spent in direct, [id number]-od-[id number] contact. Thank you for allowing me to participate in this patient's care. Further recommendations will depend on patient's clinical course. Please do not hesitate to contact me if you have any questions or concerns. This medical document was created using electronic medical record system with [employer] dictation system. Although this document has been carefully reviewed, there may still be some phonetic and typographical errors. These areas are purely typographical due to the imperfection of the software programs, and do not reflect any compromise in the patient's medical care. Plan discussed with: Patient, Other (nurse) ANTHONY MERCADO MD Mar 07, 2025 08:10
[2025-03-07 08:12] LABS: Alanine Aminotransferase 20 U/L (7-40); Albumin 4.1 g/dL (3.2-4.8); Alkaline Phosphatase 71 U/L (46-116); Anion Gap 7 (5-15); Calcium 9.4 mg/dL (8.7-10.4); Carbon Dioxide 30 mmol/L (20-31); Chloride 102 mmol/L (98-107); Glucose 96 mg/dL (74-106); Magnesium 2.0 mg/dL (1.6-2.6); Potassium 4.2 mmol/L (3.5-5.1); Sodium 139 mmol/L (136-145); Total Protein 6.9 g/dL (5.7-8.2)
[2025-03-07 08:18] LABS: Hematocrit 35.3 % (36.0-46.0); Hemoglobin 12.3 g/dL (12.2-16.2); Mean Corpuscular Hemoglobin 32.0 pg (28.0-32.0); Mean Corpuscular Volume 91.9 fL (80.0-100.0); Nucleated Red Blood Cells % 0.1 %
[2025-03-07 08:30] LABS: BUN/Creatinine Ratio 14.1 (10.0-20.0); Blood Urea Nitrogen 10 mg/dL (9-23)
[2025-03-07 08:38] LABS: Bilirubin, Total 0.7 mg/dL (0.2-1.0)
[2025-03-07 08:43] LABS: INR 2.97 (0.9-1.15); Partial Thromboplastin Time 43.0 SEC (24.5-34.5); Prothrombin Time 28.3 sec (9.3-11.8)
[2025-03-07] MEDS: hydroCHLOROthiazide 25 MG TAB PO SCH (10:13)
[2025-03-07] MEDS: FUROSEMIDE 20 MG TAB PO SCH (10:14)
[2025-03-07] MEDS: LEVOTHYROXINE SODIUM 88 MCG TAB PO SCH (10:15)
[2025-03-07] MEDS: Glucerna Carbsteady SHAKE Vanilla 8oz PO SCH (11:41)
[2025-03-07] MEDS: WARFARIN SODIUM 2 MG TAB PO ONE (17:05)
--- NOTE | 2025-03-07 18:17 | DVHSR ---
APPROVED REPORT EXAM: Two-dimensional and M-mode echocardiogram with Doppler and color Doppler. Blood Pressure: 109/69 mmHg INDICATION CP eval Surgery/Intervention Valve Replacement: Mechanical Type: AV CABG: RISK FACTORS Height: 4'10", Weight: 120 DIMENSIONS LVDd4.5 (3.8-5.7cm)LA (2D)3.7 (1.9-4.0cm)Aortic Root (2.0-3.7cm) LVDs3.0 (2.5-4.0cm)LA (MM) (1.9-4.0cm)Aortic Cusp Exc (1.5-2.0cm) EF (%) 55.0 (55-70%)Rt. Atrium4.3 (1.9-4.0cm)Asc. Aorta cm IVSd1.1 (0.7-1.1cm)RV (D)3.8 (1.8-2.4cm) PWd0.9 (0.7-1.1cm) Mitral Valve MitralMitral Stenosis E wave0.66m/sMV Mean GR.mmHg A wave0.88m/sMV Peak GR.mmHg E/A ratio0.82D MVAcm2 DECEL [id number] 1/2 Timems Aortic Valve Aortic ValveAortic Stenosis V10.91m/Alyse Mean GR.12mmHg V22.29m/Alyse Peak GR.21mmHg LVOT Diameter2.0 (1.8-2.4cm)Doppler AVA1.25cm2 Pulmonic Valve V20.73m/s Tricuspid Valve TR Velocity2.46m/s [id number] Conclusion Left ventricle: Mild Concentric left ventricular hypertrophy was seen. There was no gross wall jorge on abnormality. Right ventricle was mildly dilated with preserved systolic function. Both atria were mildly dilated. Aortic valve: Mechanical prosthetic valve was positioned in aortic area. It works properly. There was no stenosis. There was mild insufficiency. Mild mitral regurgitation was seen. Ytyo-lw-xypqjrql tricuspid regurgitation was seen. Pulmonary va lve was not well visualized. Right ventricular systolic pressure was assessed normal at 27 mm Hg. There was no pericardial effusi on.
[2025-03-08] VITALS (8 sets, daily range): BP systolic 104–117; BP diastolic 56–71; PULSE 70–80; RESP 16–18; TEMP 97.2–98.7; O2SAT 93–98
[2025-03-08 06:16] LABS: Hematocrit 36.0 % (36.0-46.0); Hemoglobin 12.4 g/dL (12.2-16.2); Mean Corpuscular Hemoglobin 31.2 pg (28.0-32.0); Mean Corpuscular Volume 90.9 fL (80.0-100.0); Nucleated Red Blood Cells % 0.1 %
[2025-03-08 07:06] LABS: INR 2.65 (0.9-1.15); Prothrombin Time 25.5 sec (9.3-11.8)
--- NOTE | 2025-03-08 13:34 | DVHPN2 ---
Progress Note - Dictate Date Seen: Mar 08, 2025 Medical Necessity Reason Pt with a Central, PICC or Fol: No vital signs Vital Sign Date Time Temp Pulse Resp B/P (MAP) Pulse Ox O2 Delivery O2 Flow Rate FiO2 03/08/25 10:59 58 105/57 03/08/25 09:00 97.7 17 93 97.7 03/08/25 08:00 Room Air* 0 21 Total Intake and Output 03/07/25 03/07/25 03/08/25 15:00 23:00 07:00 Intake Total 540 ml 800 ml Balance 540 ml 800 ml medications Current Medications Medications Dose Ordered Sig/Toño Route Start Time Stop Time Status Last Admin Dose Admin Acetaminophen/ Hydrocodone Bitart 1 tab Q4HP PRN PO 03/05/25 19:30 03/08/25 11:38 1 TAB Temazepam 15 mg QHSP PRN PO 03/05/25 19:30 Ondansetron HCl 4 mg Q4HP PRN IV 03/05/25 19:30 03/06/25 14:07 4 MG Docusate Sodium 100 mg BIDPRN PRN PO 03/05/25 19:30 Acetaminophen 650 mg Q6HP PRN PO 03/05/25 19:30 Morphine Sulfate 2 mg Q4HPRN PRN IV 03/05/25 19:30 Nitroglycerin 0.4 mg Q5MINP PRN SL 03/05/25 19:30 Morphine Sulfate 2 mg Q30M PRN IV 03/05/25 19:30 Pantoprazole Sodium 40 mg DAILY@0700 PO 03/06/25 07:00 03/08/25 06:46 40 MG Furosemide 20 mg DAILY PO 03/07/25 10:00 03/08/25 09:58 20 MG Hydrochlorothiazide 25 mg DAILY PO 03/07/25 10:00 03/08/25 09:58 25 MG Levothyroxine Sodium 88 mcg DAILY PO 03/07/25 10:00 03/08/25 09:59 88 MCG Metoprolol Tartrate 12.5 mg BID PO 03/06/25 22:00 03/08/25 09:59 12.5 MG Atorvastatin Calcium 40 mg HS PO 03/06/25 22:00 03/07/25 21:19 40 MG Duloxetine HCl 60 mg DAILY PO 03/07/25 10:00 03/08/25 09:57 60 MG Warfarin Sodium RX PROTOCOL PER PHARMACY PO 03/06/25 14:00 Quetiapine Fumarate 12.5 mg BID PO 03/06/25 22:00 03/08/25 09:58 12.5 MG Aspirin 81 mg DAILY PO 03/07/25 10:00 03/08/25 09:58 81 MG Enteral Nutritional Formula 240 ml TIDWM PO 03/07/25 12:00 03/08/25 11:08 240 ML laboratory and microbiology Laboratory Tests 03/08/25 04:56 03/07/25 06:28 Test 03/07/25 06:28 Range/Units Serum Glucose 96 74-106 mg/dL Problem List 1. Unstable angina Monitor EKG, trend troponin 2. CAD Monitor EKG, obtain CT chest 3. HLD Monitor, PPI 4. Chronic anticoagulation Monitor, continue home meds, Coumadin per pharmacy 5. Hx of CABG Monitor 6. Hypothyroid Monitor, obtain TSH level 7. Hx acute valve replacement Monitor EKG 8. Hx aortic aneurysm Monitor EKG Assessment/Plan Subjective: Patient is awake and alert. Objective: Patient was admitted for chest pain. Troponin levels were negative. Patient was seen by cardiology. Pending evaluation from vascular surgeon to rule out mural thrombus versus chronic aortic dissection. Plan: Continue current treatment. Monitor on EKG. Possible plan for discharge tomorrow if seen by vascular surgeon. Plan discussed with: Patient, Other LOAN HERNANDEZ NP Mar 08, 2025 13:34
[2025-03-08] MEDS: ALPRAZolam 0.25 MG TAB PO PRN (14:31)
--- NOTE | 2025-03-08 15:59 | DVHPN2 ---
Progress Note - Dictate Date Seen: Mar 08, 2025 Medical Necessity Reason Pt with a Central, PICC or Fol: No vital signs Vital Sign Date Time Temp Pulse Resp B/P (MAP) Pulse Ox O2 Delivery O2 Flow Rate FiO2 03/08/25 13:00 98.7 80 18 106/61 (76) 96 98.7 03/08/25 08:00 Room Air* 0 21 Total Intake and Output 03/07/25 03/07/25 03/08/25 15:00 23:00 07:00 Intake Total 540 ml 800 ml Balance 540 ml 800 ml medications Current Medications Medications Dose Ordered Sig/Toño Route Start Time Stop Time Status Last Admin Dose Admin Acetaminophen/ Hydrocodone Bitart 1 tab Q4HP PRN PO 03/05/25 19:30 03/08/25 11:38 1 TAB Temazepam 15 mg QHSP PRN PO 03/05/25 19:30 Ondansetron HCl 4 mg Q4HP PRN IV 03/05/25 19:30 03/06/25 14:07 4 MG Docusate Sodium 100 mg BIDPRN PRN PO 03/05/25 19:30 Acetaminophen 650 mg Q6HP PRN PO 03/05/25 19:30 Morphine Sulfate 2 mg Q4HPRN PRN IV 03/05/25 19:30 Nitroglycerin 0.4 mg Q5MINP PRN SL 03/05/25 19:30 Morphine Sulfate 2 mg Q30M PRN IV 03/05/25 19:30 Pantoprazole Sodium 40 mg DAILY@0700 PO 03/06/25 07:00 03/08/25 06:46 40 MG Furosemide 20 mg DAILY PO 03/07/25 10:00 03/08/25 09:58 20 MG Hydrochlorothiazide 25 mg DAILY PO 03/07/25 10:00 03/08/25 09:58 25 MG Levothyroxine Sodium 88 mcg DAILY PO 03/07/25 10:00 03/08/25 09:59 88 MCG Metoprolol Tartrate 12.5 mg BID PO 03/06/25 22:00 03/08/25 09:59 12.5 MG Atorvastatin Calcium 40 mg HS PO 03/06/25 22:00 03/07/25 21:19 40 MG Duloxetine HCl 60 mg DAILY PO 03/07/25 10:00 03/08/25 09:57 60 MG Warfarin Sodium RX PROTOCOL PER PHARMACY PO 03/06/25 14:00 Quetiapine Fumarate 12.5 mg BID PO 03/06/25 22:00 03/08/25 09:58 12.5 MG Aspirin 81 mg DAILY PO 03/07/25 10:00 03/08/25 09:58 81 MG Enteral Nutritional Formula 240 ml TIDWM PO 03/07/25 12:00 03/08/25 11:08 240 ML Alprazolam 0.25 mg Q6HP PRN PO 03/08/25 14:00 03/08/25 14:31 0.25 MG laboratory and microbiology Laboratory Tests 03/08/25 04:56 03/07/25 06:28 Test 03/07/25 06:28 Range/Units Serum Glucose 96 74-106 mg/dL Assessment/Plan Patient is a 64-year-old female who presented with chest discomfort. It was not exertional. She did vomit and felt better after that. Did have some bowel movement also. Cardiology is involved for cardiac aspects of care. Serial high sensitive troponin has been negative. EKG has been nonrevealing. Patient is known to our practice from outside and before. Patient did have bypass surgery/aortic valve replacement earlier this year. She also has history of aortic aneurysm. Not in acute distress. Sitting in bed. No JVD. Mucosa is pink and wet. Not using accessory muscles of breathing. Lungs are clear to auscultation. Cardiac: Regular, no thrill/gallop. Abdomen is soft. Bowel sound is positive. There is no gross mass/hepatomegaly. Extremities do not reveal edema. Dorsalis pedis 2+ bilateral. There is no gross lateralized neurologic deficit. Past medical history includes coronary artery disease/valvular heart disease (history of aortic insufficiency), status post CABG/aortic valve replacement (SVG to RCA and aortic valve replacement), depression, hypothyroidism, hypertension and hyperlipidemia. Left heart catheterization of September 24, 2024 revealed one-vessel coronary artery disease (RCA with 80% lesion) Echocardiogram of October 31, 2024 revealed mild concentric left ventricular hypertrophy, ejection fraction of 60-65%, mild right ventricular enlargement, moderate left atrial enlargement, mild right atrial enlargement, prosthetic valve had aortic position with [id number] aortic insufficiency, no stenosis, ckkw-rt-lgqnhprx mitral regurgitation, mild tricuspid regurgitation, ascending aorta up to 4.6 cm. There was no pulmonary hypertension Creatinine: 0.72 - 0.64 - 0.71 Potassium: 3.4 - 2.9 - 4.2 Hemoglobin: 13.7 - 12.9 - 12.3 D-dimer: <0.19 Troponin (high sensitive): 31 - 31 - 29 Chest x-ray revealed: IMPRESSION: Elevated left hemidiaphragm with left basilar atelectasis. Abdominal Angiography revealed: IMPRESSION: 1. No findings of aortic aneurysm or aortic dissection. 2. Infrarenal abdominal aorta measurement 17 mm 3. At the level of L 3 4 in the wall of the aorta on the left measures proximally 12 13 mm long and 6-7 mm thick. This may represent mural thrombus old dissection. This does not appear to be an acute dissection there is no vascular wall with contrast on both sides to suggest an acute dissection. 4. Maximal aortic measurement 2.5 cm noted at the diaphragm. No findings of dissection at this level.. 5. Mild superior endplate compression of T12 without displacement. 6. 2- 3 mm anterior spondylolisthesis L4-5 7. Hepatic steatosis. 8. All CT scans at this medical facility are performed using dose modulation techniques as appropriate to a performed exam including the following: Automated exposure control was utilized; adjustment of the MA and/or KV according to patient size; and use of iterative reconstruction technique. CT Angiography of chest revealed: IMPRESSION: 1. No pulmonary emboli 2. Ectasia of the ascending aorta measuring up to 3.7 cm. No acute vascular abnormality. 3. Status aortic valve replacement 4. Subsegmental atelectasis within the left lower lobe with elevation of the left hemidiaphragm 5. Bronchial wall thickening, nonspecific, but can be seen with chronic large areas disease 6. Coronary artery calcium EKG reveals sinus rhythm with no ST-T changes Echocardiogram revealed: Left ventricle: Mild Concentric left ventricular hypertrophy was seen. There was no gross wall motion abnormality. Right ventricle was mildly dilated with preserved systolic function. Both atria were mildly dilated. Aortic valve: Mechanical prosthetic valve was positioned in aortic area. It works properly. There was no stenosis. There was mild insufficiency. Mild mitral regurgitation was seen. Fzua-ml-rlvavflr tricuspid regurgitation was seen. Pulmonary valve was not well visualized. Right ventricular systolic pressure was assessed normal at 27 mm Hg. There was no pericardial effusion. Patient is a 64-year-old female who presented with atypical chest discomfort. Serial high sensitive troponin has been negative. Acute coronary syndrome is not considered at this point. It is of note that the patient does have history of aortic aneurysm. Did have aortic valve replacement earlier this year also. 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 At least 50% of this time was spent in direct, [id number] contact. Thank you for allowing me to participate in this patient's care. Further recommendations will depend on patient's clinical course. Please do not hesitate to contact me if you have any questions or concerns. This medical document was created using electronic medical record system with [employer] computerized dictation system. Although this document has been carefully reviewed, there may still be some phonetic and typographical errors. These areas are purely typographical due to the imperfection of the software programs, and do not reflect any compromise in the patient's medical care. Dietary Evaluation Review Comments: 1) Continue cardiac diet 2) Encourage optimal PO intake 3) Follow-up with cardiology 4) Continue to monitor I&O, labs, and skin integrity Expected Outcomes/Goals: 1) appetite and labs to improve 2) f/u in 3-5 days Plan discussed with: Patient, Other (nurse) ANTHONY MERCADO MD Mar 08, 2025 15:59
[2025-03-08] MEDS: WARFARIN SODIUM 2 MG TAB PO ONE (16:55)
[2025-03-09 01:00] VITALS: BP 124/64; PULSE 66; RESP 16; TEMP 97.1; O2SAT 97
[2025-03-09 05:00] VITALS: BP 109/63; PULSE 71; RESP 16; TEMP 97.4; O2SAT 96
[2025-03-09 07:12] LABS: Hematocrit 38.9 % (36.0-46.0); Hemoglobin 13.4 g/dL (12.2-16.2); Mean Corpuscular Hemoglobin 31.1 pg (28.0-32.0); Mean Corpuscular Volume 90.2 fL (80.0-100.0); Nucleated Red Blood Cells % 0.4 %
[2025-03-09 07:40] LABS: INR 1.87 (0.9-1.15); Prothrombin Time 18.6 sec (9.3-11.8)
--- NOTE | 2025-03-09 07:58 | DVHPN2 ---
Progress Note - Dictate Date Seen: Mar 09, 2025 Medical Necessity Reason Pt with a Central, PICC or Fol: No vital signs Vital Sign Date Time Temp Pulse Resp B/P (MAP) Pulse Ox O2 Delivery O2 Flow Rate FiO2 03/09/25 05:00 97.4 71 16 109/63 (78) 96 97.4 03/08/25 20:00 Room Air* 0 21 Total Intake and Output 03/08/25 03/08/25 03/09/25 15:00 23:00 07:00 Intake Total 750 ml 440 ml Balance 750 ml 440 ml medications Current Medications Medications Dose Ordered Sig/Toño Route Start Time Stop Time Status Last Admin Dose Admin Acetaminophen/ Hydrocodone Bitart 1 tab Q4HP PRN PO 03/05/25 19:30 03/08/25 21:39 1 TAB Temazepam 15 mg QHSP PRN PO 03/05/25 19:30 Ondansetron HCl 4 mg Q4HP PRN IV 03/05/25 19:30 03/06/25 14:07 4 MG Docusate Sodium 100 mg BIDPRN PRN PO 03/05/25 19:30 Acetaminophen 650 mg Q6HP PRN PO 03/05/25 19:30 Morphine Sulfate 2 mg Q4HPRN PRN IV 03/05/25 19:30 Nitroglycerin 0.4 mg Q5MINP PRN SL 03/05/25 19:30 Morphine Sulfate 2 mg Q30M PRN IV 03/05/25 19:30 Pantoprazole Sodium 40 mg DAILY@0700 PO 03/06/25 07:00 03/09/25 06:20 40 MG Furosemide 20 mg DAILY PO 03/07/25 10:00 03/08/25 09:58 20 MG Hydrochlorothiazide 25 mg DAILY PO 03/07/25 10:00 03/08/25 09:58 25 MG Levothyroxine Sodium 88 mcg DAILY PO 03/07/25 10:00 03/08/25 09:59 88 MCG Metoprolol Tartrate 12.5 mg BID PO 03/06/25 22:00 03/08/25 21:37 12.5 MG Atorvastatin Calcium 40 mg HS PO 03/06/25 22:00 03/08/25 21:36 40 MG Duloxetine HCl 60 mg DAILY PO 03/07/25 10:00 03/08/25 09:57 60 MG Warfarin Sodium RX PROTOCOL PER PHARMACY PO 03/06/25 14:00 Quetiapine Fumarate 12.5 mg BID PO 03/06/25 22:00 03/08/25 21:37 12.5 MG Aspirin 81 mg DAILY PO 03/07/25 10:00 03/08/25 09:58 81 MG Enteral Nutritional Formula 240 ml TIDWM PO 03/07/25 12:00 03/09/25 07:33 240 ML Alprazolam 0.25 mg Q6HP PRN PO 03/08/25 14:00 03/09/25 02:37 0.25 MG laboratory and microbiology Laboratory Tests 03/09/25 06:18 03/07/25 06:28 Test 03/07/25 06:28 Range/Units Serum Glucose 96 74-106 mg/dL Assessment/Plan Patient is a 64-year-old female who presented with chest discomfort. It was not exertional. She did vomit and felt better after that. Did have some bowel movement also. Cardiology is involved for cardiac aspects of care. Serial high sensitive troponin has been negative. EKG has been nonrevealing. Patient is known to our practice from outside and before. Patient did have bypass surgery/aortic valve replacement earlier this year. She also has history of aortic aneurysm. Not in acute distress. Sitting in bed. No JVD. Mucosa is pink and wet. Not using accessory muscles of breathing. Lungs are clear to auscultation. Cardiac: Regular, no thrill/gallop. Abdomen is soft. Bowel sound is positive. There is no gross mass/hepatomegaly. Extremities do not reveal edema. Dorsalis pedis 2+ bilateral. There is no gross lateralized neurologic deficit. Past medical history includes coronary artery disease/valvular heart disease (history of aortic insufficiency), status post CABG/aortic valve replacement (SVG to RCA and aortic valve replacement), depression, hypothyroidism, hypertension and hyperlipidemia. Left heart catheterization of September 24, 2024 revealed one-vessel coronary artery disease (RCA with 80% lesion) Echocardiogram of October 31, 2024 revealed mild concentric left ventricular hypertrophy, ejection fraction of 60-65%, mild right ventricular enlargement, moderate left atrial enlargement, mild right atrial enlargement, prosthetic valve had aortic position with [id number] aortic insufficiency, no stenosis, [id number] mitral regurgitation, mild tricuspid regurgitation, ascending aorta up to 4.6 cm. There was no pulmonary hypertension Creatinine: 0.72 - 0.64 - 0.71 Potassium: 3.4 - 2.9 - 4.2 Hemoglobin: 13.7 - 12.9 - 12.3 - 12.4 - 13.4 D-dimer: <0.19 Troponin (high sensitive): 31 - 31 - 29 Chest x-ray revealed: IMPRESSION: Elevated left hemidiaphragm with left basilar atelectasis. Abdominal Angiography revealed: IMPRESSION: 1. No findings of aortic aneurysm or aortic dissection. 2. Infrarenal abdominal aorta measurement 17 mm 3. At the level of L 3 4 in the wall of the aorta on the left measures proximally 12 13 mm long and 6-7 mm thick. This may represent mural thrombus old dissection. This does not appear to be an acute dissection there is no vascular wall with contrast on both sides to suggest an acute dissection. 4. Maximal aortic measurement 2.5 cm noted at the diaphragm. No findings of dissection at this level.. 5. Mild superior endplate compression of T12 without displacement. 6. 2- 3 mm anterior spondylolisthesis L4-5 7. Hepatic steatosis. 8. All CT scans at this medical facility are performed using dose modulation techniques as appropriate to a performed exam including the following: Automated exposure control was utilized; adjustment of the MA and/or KV according to patient size; and use of iterative reconstruction technique. CT Angiography of chest revealed: IMPRESSION: 1. No pulmonary emboli 2. Ectasia of the ascending aorta measuring up to 3.7 cm. No acute vascular abnormality. 3. Status aortic valve replacement 4. Subsegmental atelectasis within the left lower lobe with elevation of the left hemidiaphragm 5. Bronchial wall thickening, nonspecific, but can be seen with chronic large areas disease 6. Coronary artery calcium EKG reveals sinus rhythm with no ST-T changes Echocardiogram revealed: Left ventricle: Mild Concentric left ventricular hypertrophy was seen. There was no gross wall motion abnormality. Right ventricle was mildly dilated with preserved systolic function. Both atria were mildly dilated. Aortic valve: Mechanical prosthetic valve was positioned in aortic area. It works properly. There was no stenosis. There was mild insufficiency. Mild mitral regurgitation was seen. [id number] tricuspid regurgitation was seen. Pulmonary valve was not well visualized. Right ventricular systolic pressure was assessed normal at 27 mm Hg. There was no pericardial effusion. Patient is a 64-year-old female who presented with atypical chest discomfort. Serial high sensitive troponin has been negative. Acute coronary syndrome is not considered at this point. It is of note that the patient does have history of aortic aneurysm. Did have aortic valve replacement earlier this year also. 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 At least 50% of this time was spent in direct, [id number] contact. Thank you for allowing me to participate in this patient's care. Further recommendations will depend on patient's clinical course. Please do not hesitate to contact me if you have any questions or concerns. This medical document was created using electronic medical record system with [employer] computerized dictation system. Although this document has been carefully reviewed, there may still be some phonetic and typographical errors. These areas are purely typographical due to the imperfection of the software programs, and do not reflect any compromise in the patient's medical care. Dietary Evaluation Review Comments: 1) Continue cardiac diet 2) Encourage optimal PO intake 3) Follow-up with cardiology 4) Continue to monitor I&O, labs, and skin integrity Expected Outcomes/Goals: 1) appetite and labs to improve 2) f/u in 3-5 days Plan discussed with: Patient, Other (nurse) ANTHONY MERCADO MD Mar 09, 2025 07:58
[2025-03-09 08:00] VITALS: PULSE 72; PULSE 77; RESP 19
[2025-03-09 09:00] VITALS: BP 133/83; PULSE 75; RESP 16; TEMP 75; TEMP 97.4; O2SAT 95
--- NOTE | 2025-03-09 11:07 | DVHCONRES ---
Date Seen: Mar 09, 2025 Resident Creating Document: JOSE OLIVER Jr., MD Referring Physician Dany Reason for Consultation history of left shoulder and back pain History of Present Illness 64 yo female with hx of CABG c/o left sided chest pain that radiates to her left shoulder with associated SOB. Cta found to have possible aortic dissection. Pt. currently is asymptomatic, Quit smoking 03/2024 Blood pressure is currently well controlled Past Medical History CABg Family History: Diabetes mellitus G8 MOTHER G8 FATHER FH: heart disease G8 MOTHER G8 FATHER G8 BROTHER Allergies: Coded Allergies: NO KNOWN ALLERGIES (Unverified , 03/05/25) Home Meds Reported Medications Aspirin (Aspirin) 325 Mg Tab, 81 MG PO DAILY for 30 Days, MG 03/06/25 Quetiapine Fumerate (Seroquel) 50 Mg Tab, 25 MG PO BID, TAB 03/06/25 Furosemide (Furosemide) 20 Mg Tab, 20 MG PO DAILY, TAB 03/06/25 Metoprolol Tartrate (Metoprolol Tartrate) 25 Mg Tab, 12.5 MG PO BID, TAB 03/06/25 Warfarin Sodium (Warfarin Sodium) 3 Mg Tab, 6 MG PO, TAB TAHE 2 TABLET BY MOUTH EVERY MON, WED, TH, SUN, AND SUN. 03/06/25 Atorvastatin Calcium (ATORVASTATIN CALCIUM) 40 Mg Tab, 40 MG PO DAILY, TAB 03/06/25 Duloxetine Hcl (Cymbalta) 60 Mg Cap, 60 MG PO DAILY, CAP 03/06/25 Warfarin Sodium (Warfarin Sodium) 4 Mg Tab, 4 MG PO DAILY, TAB TAKE 1 TABLET BY MOUTH EVERY AND SAT. 03/06/25 Levothyroxine Sodium (Levothyroxine Sodium) 88 Mcg Tab, 88 MCG PO DAILY, TAB 03/06/25 Hctz (Hydrochlorothiazide) 25 Mg Tab, 25 MG PO DAILY, TAB 03/06/25 Current Medications Current Medications Medications (Trade) Dose Ordered Sig/Toño Route PRN Reason Start Time Stop Time Status Last Admin Alprazolam (Xanax Tablet) 0.25 mg Q6HP PRN PO ANXIETY 03/08/25 14:00 03/09/25 02:37 Review of Systems Constitutional: denies chills, denies fever, denies malaise Eyes: denies eye pain, denies vision change ENT: denies ear pain, denies headache, denies nasal congestion, denies painful swallowing, denies voice change Cardiovascular: denies chest pain, denies edema, denies orthopnea, denies palpitations, denies paroxysmal nocturnal dyspnea Respiratory: denies cough, denies shortness of breath Gastrointestinal: denies constipation, denies diarrhea, denies nausea, denies vomiting Genitourinary: denies dysuria, denies frequent urination, denies urethral discharge Musculoskeletal: denies back pain, denies joint pain, denies muscle pain Skin: denies bruising, denies itching, denies rash Neurological: denies focal weakness, denies headache, denies sensory changes Psychiatric: denies anxiety, denies depression Endocrine: denies polydipsia, denies polyuria Hematologic/Lymphatic: denies easy bleeding, denies easy bruising, denies enlarged lymph nodes Allergic/Immunologic: denies allergy, denies hives Vital Signs Vital Signs Date Time Temp Pulse Resp B/P (MAP) Pulse Ox O2 Delivery O2 Flow Rate FiO2 03/09/25 10:41 59 107/69 03/09/25 09:00 75.0 16 95 75.0 03/09/25 08:00 Room Air* 0 21 Physical Exam no carotid bruits. rrr abd. soft non tender. no bruits palp. femoral and pedal pulses bilaterally Labs/Diagnostic Data Labs Test 03/09/25 06:18 03/07/25 06:28 03/05/25 18:23 03/05/25 15:22 Range/Units White Blood Count 5.0 4.4-10.8 10^3/uL Red Blood Count 4.31 4.0-5.20 10^6/uL Hemoglobin 13.4 12.2-16.2 g/dL Hematocrit 38.9 36.0-46.0 % Mean Corpuscular Volume 90.2 80.0-100.0 fL Mean Corpuscular Hemoglobin 31.1 28.0-32.0 pg Mean Corpuscular Hemoglobin Concent 34.5 32.0-36.0 g/dL Red Cell Distribution Width 16.1 H 11.8-14.3 % Platelet Count 277 140-450 10^3/uL Mean Platelet Volume 8.0 6.9-10.8 fL Neutrophils (%) (Auto) 43.4 37.0-80.0 % Lymphocytes (%) (Auto) 47.3 10.0-50.0 % Monocytes (%) (Auto) 7.2 0.0-12.0 % Eosinophils (%) (Auto) 1.9 0.0-7.0 % Basophils (%) (Auto) 0.2 0.0-2.0 % Neutrophils # (Auto) 2.2 1.6-8.6 10 ^3/uL Lymphocytes # (Auto) 2.4 0.4-5.4 10 ^3/uL Monocytes # (Auto) 0.4 0-1.3 10 ^3/uL Eosinophils # (Auto) 0.1 0-0.8 10 ^3/uL Basophils # (Auto) 0 0-0.2 10 ^3/uL Nucleated Red Blood Cells 0.4 % Prothrombin Time 18.6 H 9.3-11.8 sec Prothrombin Time INR 1.87 H 0.9-1.15 Activated Partial Thromboplast Time 43.0 H 24.5-34.5 SEC Sodium Level 139 136-145 mmol/L Potassium Level 4.2 3.5-5.1 mmol/L Chloride Level 102 98-107 mmol/L Carbon Dioxide Level 30 20-31 mmol/L Anion Gap 7 5-15 Blood Urea Nitrogen 10 9-23 mg/dL Creatinine 0.71 0.550-1.02 mg/dL Glomerular Filtration Rate Calc 95 >90 mL/min BUN/Creatinine Ratio 14.1 10.0-20.0 Serum Glucose 96 74-106 mg/dL Calcium Level 9.4 8.7-10.4 mg/dL Magnesium Level 2.0 1.6-2.6 mg/dL Total Bilirubin 0.7 0.2-1.0 mg/dL Aspartate Amino Transferase (AST) 21 13-40 U/L Alanine Aminotransferase (ALT) 20 7-40 U/L Alkaline Phosphatase 71 46-116 U/L Total Protein 6.9 5.7-8.2 g/dL Albumin 4.1 3.2-4.8 g/dL Troponin I High Sensitivity 29 </=34 ng/L D-Dimer, Quantitative < 0.19 0.0-0.49 mg/L FEU Exam: CT ANGIO AORTIC ABDOMINAL History: POSSIBLE DISSECTION/ANEURSYM Comparison Study: None Contrast: Type of contrast: Omnipaque 350 Contrast injected: 85 mL Contrast wasted: 0 TECHNIQUE: A digital teacher tutor image was obtained. During the uneventful, intravenous administration of contrast material, multislice data acquisition was obtained through the abdomen and pelvis. The data set was subsequently reconstructed into axial images. Images were reviewed on a work station using a combination of axial and multiplanar using a variety of window levels and settings. Radiation Dose Information: CT Dose: CTDI volume is 29.41 mGy. Dose-length product is 270.24 mGy*cm FINDINGS: Lung Bases: No acute or significant lung base finding. Normal heart size. No pleural or pericardial effusion. Liver: The liver is normal in size. No focal lesions. Normal hepatic vascular enhancement. Hepatic steatosis. Gallbladder and Biliary Tree: Unremarkable Spleen: Unremarkable Pancreas: The pancreas is normal in appearance without focal lesions or abnormal enhancement. Adrenal Glands: Unremarkable Kidneys: Kidneys demonstrate normal symmetric enhancement without focal lesions, calculi or hydronephrosis. Bladder: Unremarkable Bowel: The stomach is grossly normal in appearance. Small bowel and colon are normal in caliber and distribution. The appendix is not visualized; however, no secondary findings of acute appendicitis identified. Ascites: Absent Lymphadenopathy: No mesenteric, retroperitoneal or periportal lymphadenopathy. Abdominal Wall and Mesentery: Unremarkable. Vasculature: The visualized abdominal aorta is normal in size and caliber. Abdominal and pelvic vessels demonstrate normal enhancement. Abdominal aorta of the diaphragm measures 2.5 cm. No dissection. Terminal aorta below the renal arteries 17 mm no dissection. Abdominal aorta measures 16 mm above the aortic bifurcation with mural thrombus. Abdominal aorta above the aortic bifurcation measures 13 mm calcifications in the wall. No findings to suggest aortic dis section. Right iliac artery measures 7.5 mm with calcification wall no findings of dissection. Left iliac artery measures 7 0.3 mm no aortic dissection calcifications in the wall. Pelvic Organs: Unremarkable Musculoskeletal: No aggressive focal bony lesions, acute fractures or dislocation. 3 mm anterior spondylolisthesis L4-5. Mild superior endplate compression of T12 without displacement. Soft tissues: Unremarkable. IMPRESSION: 1. No findings of aortic aneurysm or aortic dissection. 2. Infrarenal abdominal aorta measurement 17 mm 3. At the level of L 3 4 in the wall of the aorta on the left measures proximally 12 13 mm long and 6-7 mm thick. This may represent mural thrombus old dissection. This does not appear to be an acute dissection there is no vascular wall with contrast on both sides to suggest an acute dissection. 4. Maximal aortic measurement 2.5 cm noted at the diaphragm. No findings of dissection at this level.. 5. Mild superior endplate compression of T12 without displacement. 6. 2-3 mm anterior spondylolisthesis L4-5 7. Hepatic steatosis. 8. All CT scans at this medical facility are performed using dose modulation techniques as appropriate to a performed exam including the following: Automated exposure control was utilized; adjustment of the MA and/or KV according to patient size; and use of iterative reconstruction technique. Assessment Shoulder pain resolved.no evidence of dissection. Strict bp control and non smoking lifestyle Plan/Recommendation Shoulder pain resolved.no evidence of dissection. Strict bp control and non smoking lifestyle Plan discussed with: Patient JOSE OLIVER Jr., MD Mar 09, 2025 11:07
--- NOTE | 2025-03-09 11:49 | ECG ---
[facility] Test Date: 2025-03-05 Test Time: 15:28:40 Pat Name: COREY AVILA Department: ED Room: 0291T B Gender: F [employer] Worker: FELICITAS : 1960 Requested By: SHAYLEE HERNANDEZ Order Number: [id number] Reading MD: Cristóbal Osei Measurements Intervals [place] Rate: 85 P: 36 [place]: 137 QRS: -20 QRSD: 92 T: 58 QT: 385 QTc: 458 Interpretive Statements Sinus rhythm Borderline left axis deviation Abnormal R-wave progression, early transition Borderline T wave abnormalities Borderline ST elevation, anterior leads Baseline wander in lead(s) I,III,aVR,aVL Electronically Signed On 03-09-2025 18:37:48 PDT by Cristóbal Osei Please click the below link to view image of tracing.
--- NOTE | 2025-03-09 11:49 | ECG ---
[facility] Test Date: 2025-03-05 Test Time: 15:24:08 Pat Name: COREY AVILA Department: ED Room: 0291T B Gender: F Second Time Worker: FELICITAS : 1960 Requested By: SHAYLEE HERNANDEZ Order Number: [id number] Reading MD: Cristóbal Osei Measurements Intervals [place] Rate: 82 P: 57 [place]: 141 QRS: -31 QRSD: 134 T: 32 QT: 379 QTc: 443 Interpretive Statements Sinus rhythm Probable left atrial enlargement Left ventricular hypertrophy Anterior infarct, acute (LAD) Electronically Signed On 03-09-2025 18:37:43 PDT by Cristóbal Osei Please click the below link to view image of tracing.
--- NOTE | 2025-03-09 11:49 | ECG ---
[facility] Test Date: 2025-03-05 Test Time: 16:09:06 Pat Name: COREY AVILA Department: Room: [facility]1T B Gender: F Suction Roller: MARLI : 1960 Requested By: SHAYLEE HERNANDEZ Order Number: [id number] Reading MD: Cristóbal Osei Measurements Intervals [place] Rate: 81 P: 53 [place]: 142 QRS: -21 QRSD: 99 T: 53 QT: 397 QTc: 461 Interpretive Statements Sinus rhythm Probable left atrial enlargement Borderline left axis deviation Low voltage, extremity leads Abnormal R-wave progression, early transition Borderline ST elevation, anterior leads Electronically Signed On 03-09-2025 18:38:11 PDT by Cristóbal Osei Please click the below link to view image of tracing.
[2025-03-09 12:51] VITALS: BP 116/76; PULSE 80; RESP 16; TEMP 98.2; O2SAT 95
--- NOTE | 2025-03-09 13:49 | DVHDS2 ---
Discharge Summary Date of Admission Mar 05, 2025 at 19:21 Date of Discharge: Mar 09, 2025 Labs/Diagnostic Data: Laboratory Results Test 03/09/25 06:18 03/07/25 06:28 03/05/25 18:23 03/05/25 15:22 White Blood Count 5.0 10^3/uL (4.4-10.8) Red Blood Count 4.31 10^6/uL (4.0-5.20) Hemoglobin 13.4 g/dL (12.2-16.2) Hematocrit 38.9 % (36.0-46.0) Mean Corpuscular Volume 90.2 fL (80.0-100.0) Mean Corpuscular Hemoglobin 31.1 pg (28.0-32.0) Mean Corpuscular Hemoglobin Concent 34.5 g/dL (32.0-36.0) Red Cell Distribution Width 16.1 % (11.8-14.3) Platelet Count 277 10^3/uL (140-450) Mean Platelet Volume 8.0 fL (6.9-10.8) Neutrophils (%) (Auto) 43.4 % (37.0-80.0) Lymphocytes (%) (Auto) 47.3 % (10.0-50.0) Monocytes (%) (Auto) 7.2 % (0.0-12.0) Eosinophils (%) (Auto) 1.9 % (0.0-7.0) Basophils (%) (Auto) 0.2 % (0.0-2.0) Neutrophils # (Auto) 2.2 10 ^3/uL (1.6-8.6) Lymphocytes # (Auto) 2.4 10 ^3/uL (0.4-5.4) Monocytes # (Auto) 0.4 10 ^3/uL (0-1.3) Eosinophils # (Auto) 0.1 10 ^3/uL (0-0.8) Basophils # (Auto) 0 10 ^3/uL (0-0.2) Nucleated Red Blood Cells 0.4 % Prothrombin Time 18.6 sec (9.3-11.8) Prothrombin Time INR 1.87 (0.9-1.15) Activated Partial Thromboplast Time 43.0 SEC (24.5-34.5) Sodium Level 139 mmol/L (136-145) Potassium Level 4.2 mmol/L (3.5-5.1) Chloride Level 102 mmol/L (98-107) Carbon Dioxide Level 30 mmol/L (20-31) Anion Gap 7 (5-15) Blood Urea Nitrogen 10 mg/dL (9-23) Creatinine 0.71 mg/dL (0.550-1.02) Glomerular Filtration Rate Calc 95 mL/min (>90) BUN/Creatinine Ratio 14.1 (10.0-20.0) Serum Glucose 96 mg/dL (74-106) Calcium Level 9.4 mg/dL (8.7-10.4) Magnesium Level 2.0 mg/dL (1.6-2.6) Total Bilirubin 0.7 mg/dL (0.2-1.0) Aspartate Amino Transferase (AST) 21 U/L (13-40) Alanine Aminotransferase (ALT) 20 U/L (7-40) Alkaline Phosphatase 71 U/L (46-116) Total Protein 6.9 g/dL (5.7-8.2) Albumin 4.1 g/dL (3.2-4.8) Troponin I High Sensitivity 29 ng/L (</=34) D-Dimer, Quantitative < 0.19 mg/L FEU (0.0-0.49) Other Laboratory Tests 03/09/25 06:18 03/07/25 06:28 Brief Hx & Hospital Course: 64 yo female with hx of CABG c/o left sided chest pain that radiates to her left shoulder with associated SOB. Patient was admitted on March 05, 2025 for chest pain. Patient was seen by cardiology. CT angiogram was done. Per cardiology she needed vascular surgery evaluation due to possible mural thrombus versus dissection of aortic artery. Patient was seen by vascular surgeon. No acute findings were found. No interventions needed. Patient was cleared for discharge. Patient found to have chest pain related to anxiety. Patient was prescribed Xanax for home. She was instructed to follow-up with her outpatient regulatory affairs consultant and PCP in 1 week. There were no complaints or new complaints upon discharge, all questions and concerns were answered. Patient was advised to return to the ER or call 911 if any headaches, dizziness, shortness of breath, chest pain, bleeding, fevers, or worsening of medical condition. Patient/Family was counseled about treatment plan, medications, possible side effects, patient verbalized understanding. All questions were answered to the best of my ability. The patient symptoms improved and they are okay to be DC. Condition at Discharge: Stable Final Diagnosis/Problems List 1. Unstable angina 2. CAD 3. HLD 4. Chronic anticoagulation 5. Hx of CABG 6. Hypothyroid 7. Hx acute valve replacement 8. Hx aortic aneurysm Discharge Disposition: Home Discharge Instruct/Medications Scheduled Aspirin (Aspirin), 81 MG PO DAILY, (Reported) Atorvastatin Calcium (Atorvastatin Calcium), 40 MG PO DAILY, (Reported) Duloxetine Hcl (Cymbalta), 60 MG PO DAILY, (Reported) Furosemide (Furosemide), 20 MG PO DAILY, (Reported) Hctz (Hydrochlorothiazide), 25 MG PO DAILY, (Reported) Levothyroxine Sodium (Levothyroxine Sodium), 88 MCG PO DAILY, (Reported) Metoprolol Tartrate (Metoprolol Tartrate), 12.5 MG PO BID, (Reported) Quetiapine Fumerate (Seroquel), 25 MG PO BID, (Reported) Warfarin Sodium (Warfarin Sodium), 4 MG PO DAILY, (Reported) Scheduled PRN Alprazolam (Xanax), 1 TAB PO TID PRN Miscellaneous Medications Warfarin Sodium (Warfarin Sodium), 6 MG PO, (Reported) Discharge Statement: "Patient was advised to return to the ER or call 911 if any headaches, dizziness, shortness of breath, chest pain, abdominal pain, bleeding, fevers, or worsening of medical condition. Patient was counseled about treatment plan, medications, possible side effects, patientverbalized understanding. All questions were answered to the best of my ability. This discharge took greater then 30 minutes in planning, reviewing documentation, counseling the patient, and discussing with other team members." ASSESSMENT ASSESSMENT Assessment LOAN HERNANDEZ NP Mar 09, 2025 13:49
[2025-03-09] MEDS ORDERED: ALPR0.25 PO (14:26)
[2025-03-09 14:35] VITALS: BP 111/59; PULSE 75; RESP 16; TEMP 97.4; O2SAT 95
[2025-03-09] MEDS ORDERED: WARFARIN SODIUM 2 MG TAB PO ONE (17:00)
--- NOTE | 2025-03-10 15:28 | ECG ---
[facility] Test Date: 2025-03-05 Test Time: 18:13:33 Pat Name: COREY AVILA Department: Room: 0291T B Gender: F Long Term Care Social Worker: MARLI : 1960 Requested By: SHAYLEE HERNANDEZ Order Number: [id number] Reading MD: Cristóbal Osei Measurements Intervals [place] Rate: 87 P: 47 NM: 152 QRS: -28 QRSD: 92 T: 88 QT: 391 QTc: 471 Interpretive Statements Sinus rhythm Probable left atrial enlargement Borderline left axis deviation Borderline low voltage, extremity leads RSR' in V1 or V2, right VCD or RVH Borderline ST elevation, anterior leads Electronically Signed On 03-10-2025 15:39:14 PDT by Cristóbal Osei Please click the below link to view image of tracing.
== END 2025-03-09 15:00 | disposition home or self-care (01) | DRG 198 ==
LOC: ER 15:19 → OVERFLOW 19:21 → TELE-WESTW 03-06 21:55
PROVIDERS: ADMIT Nurse Practitioner; ATTEND Nurse Practitioner
DX: I25.110 Atherosclerotic heart disease of native coronary artery with unstable angina pectoris (principal); E03.9 Hypothyroidism, unspecified; M25.512 Pain in left shoulder; E78.5 Hyperlipidemia, unspecified; I77.810 Thoracic aortic ectasia; F41.9 Anxiety disorder, unspecified; F32.A Depression, unspecified; I10 Essential (primary) hypertension; K76.0 Fatty (change of) liver, not elsewhere classified; Z95.2 Presence of prosthetic heart valve; Z95.1 Presence of aortocoronary bypass graft; Z86.79 Personal history of other diseases of the circulatory system; Z79.899 Other long term (current) drug therapy; Z79.01 Long term (current) use of anticoagulants; Z87.891 Personal history of nicotine dependence; Z82.49 Family history of ischemic heart disease and other diseases of the circulatory system; Z83.3 Family history of diabetes mellitus
CPT/HCPCS: 36415; 71045; 71275; 74175; 80048; 80053; 83735; 84484; 85025; 85379; 85610; 85730; 93005; 93306; G0378; J2405; J3480